=== PATIENT | female | born 1945 | race Caucasian/White ===

== ENCOUNTER → 2016-10-02 | Day surgery (SDC) | payer OTHER ==
--- NOTE | 2016-10-02 10:03 | CPEKG ---
Heart Rate: 87 RR Interval: 690 P-R Interval: 176 QRSD Interval: 74 QT Interval: 368 QTC Interval: 443 P [place]: 73 QRS [place]: -4 T Wave [place]: 57 EKG Severity - NORMAL ECG - EKG Impression: SINUS RHYTHM EKG Impression: LEFTWARD AXIS Electronically Signed By: Leonardo Chavis 03-Oct-2016 08:52:07
[2016-10-02 10:27] LABS: ANION GAP 10 mEq/L (8-16); CARBON DIOXIDE 24 mEq/l (22-31); CHLORIDE 104 mEq/L (97-110); GLOMERULAR FILTRATION RATE 54; GLUCOSE 78 mg/dL (70-100); POTASSIUM 5.5 mEq/L (3.5-5.2); SODIUM 138 mEq/L (134-144)
--- NOTE | 2016-10-02 15:07 | GPN ---
DATE OF PROCEDURE: 10/02/2016 TIME: 9:30 a.m. HISTORY OF PRESENT ILLNESS: Ms. Grant presents for possible bilateral SI joint injection. She is referred by Dr. Celio Del Real. She is not taking any blood thinners or antibiotics and denies allergies to shellfish, latex, contrast dye, and iodine. Per chart notes, she was recently admitted to the Hospital with an episode of MRSA. However, she reports that she has tested negative multiple times since then. Per Anesthesiology recommendations, a basic metabolic panel and a 12-lead EKG were obtained. ID was consulted and was not concerned about her history of MRSA or the joint injections; however, they did inform me the hospital policy is that anyone who has tested positive for MRSA within the past year should be treated with MRSA precautions which were instituted for this patient. PROCEDURE: Bilateral SI joint injections. DIAGNOSIS: Sacroiliac arthropathy low back pain. SITE: Bilateral low back. ANESTHESIA: Local with Versed 4 mg and fentanyl 50 mcg IV. COMPLICATIONS: None. ESTIMATED BLOOD LOSS: Minimal. PRE-PROCEDURE CONSENT: The preprocedure consent was obtained after the risks, benefits, and alternatives of the procedure were explained to the patient. The risks include, but are not limited to, nerve injury, spinal cord injury, joint injury paralysis brain injury or stroke, muscle injury, infection to adverse medication effects, bleeding, increased pain, and any other unforeseen consequences. The patient agreed and signed the consent for the procedure. PROCEDURE VERIFICATION AND TIMEOUT: Verbal verification of patient site and procedure was done. All present were in agreement. Please see nursing notes for time of time-out. PROCEDURE NOTE: The patient was identified and placed in a prone position on the procedure room table. Standard ASA monitors were put in place. Her low back was prepped and draped in the usual sterile fashion with ChloraPrep and a fenestrated drape. Then, a left oblique fluoroscopic view was obtained to visualize the right SI joint. The anterior and posterior aspect of the joint were aligned, and the target in the inferior 1/3 of the joint was identified. 2 mL of subcutaneous 1% lidocaine was instilled into the superficial soft tissue for local anesthesia over the target region. Under fluoroscopic guidance , a 22-gauge, 3-1/2 inch spinal needle was advanced percutaneously using AP and lateral fluoroscopic guidance via a posterior approach until the needle tip was seated in the SI joint. Biplanar fluoroscopy was used to confirm correct needle tip position. After negative aspiration, 0.5 mL of nonionic contrast agent contrast agent was injected, revealing a clear outline of the SI joint. Then, 5 mL of a solution containing 40 mg triamcinolone in 0.25% bupivacaine was injected in 1 mL increments with negative aspiration in between. There was no pain or paresthesia upon injected. The needle was restyletted and removed. The exact same procedure was then repeated on the opposite side. The patient tolerated the procedure well and was monitored for 30 more minutes with no apparent complications and was discharged home in good condition with a ride. She experienced no side effects from sedation and was instructed not to drive, operate heavy machinery or make any life altering decisions today. She was instructed to call our clinic with nonurgent concerns or 911 in an emergency. In particular she was taught that new weakness or numbness, changes in bowel or bladder control, fever and swelling or redness over the injection site are all urgent concerns that would warrant calling 911 or going to an emergency care facility. She verbalized understanding and was discharged home with postprocedure instructions and a ride. ASSESSMENT AND PLAN: Bilateral sacroiliac joint injections done today without complications. The patient will follow up with our clinic and we will consider scheduling sacroiliac joint radiofrequency ablation. /[id number]/MODL MTDD
== END | disposition home or self-care (01) ==
LOC: FSGY 08:47 → EEVIPCON 09:30
PROC: 3E0U3BZ Introduction of Anesthetic Agent into Joints, Percutaneous Approach (ICD-10-PCS; principal; 2016-10-02 09:30)
PROC: 3E0U33Z Introduction of Anti-inflammatory into Joints, Percutaneous Approach (ICD-10-PCS; principal; 2016-10-02 09:30)
DX: M54.5 Low back pain (principal); M53.3 Sacrococcygeal disorders, not elsewhere classified
CPT/HCPCS: 76001; 93005; G0260; J2250; J3010; J3301; Q9966

== ENCOUNTER 2017-03-13 20:52 | Inpatient (IN) | payer OTHER ==
[2017-03-13] MEDS ORDERED: ONDANSETRON 4 MG/2 ML VIAL IVP PRN (22:03)
[2017-03-13] MEDS: ACETAMINOPHEN 500 MG TAB PO PRN (23:40)
[2017-03-13] MEDS: NS W/ 20 KCl/L 1,000 ML IV SCH (23:40)
[2017-03-13] MEDS: DIAZEPAM 10 MG/2 ML SYR IVP PRN (23:43)
[2017-03-14 00:47] LABS: % IMMATURE GRANULYOCYTES 0.7 % (0.0-1.1); ABSOLUTE IMMATURE GRANULOCYTES 0.14 10^3/uL (0.00-0.10); ABSOLUTE NRBC COUNT 0.02 10^3/uL (0-0.01); ADD DIFF? NO; ADD MORPH? NO; ADD SCAN? NO; ATYPICAL LYMPHOCYTE FLAG 0 (0-99); FRAGMENT RBC FLAG 0 (0-99); HEMATOCRIT 31.2 % (38.0-47.0); HEMOGLOBIN 10.4 g/dL (12.6-16.3); LEFT SHIFT FLG 0 (0-99); LIPEMIA HEMOLYSIS FLAG 80 (0-99); MEAN CELL HEMOGLOBIN 34.9 pg (27.9-34.1); MEAN CELL HEMOGLOBIN CONCENTR. 33.3 g/dL (32.4-36.7); MEAN CELL VOLUME 104.7 fL (81.5-99.8); MEAN PLATELET VOLUME 9.7 fL (8.7-11.7); NRBC-AUTO% 0.1 % (0.0-0.2); PLATELET CLUMPS FLAG 10 (0-99); PLATELET COUNT 309 10^3/uL (150-400); RED BLOOD CELL COUNT 2.98 10^6/uL (4.18-5.33); RED CELL DISTRIBUTION WIDTH 12.7 % (11.5-15.2)
[2017-03-14 01:02] LABS: COLOR PALE YELLOW; LEUKOCYTE ESTERASE,URINE 2+ (NEGATIVE); NITRITE,URINE NEGATIVE (NEGATIVE)
[2017-03-14 01:04] LABS: ANION GAP 9 mEq/L (8-16); CALCIUM 8.3 mg/dL (8.5-10.4); CARBON DIOXIDE 22 mEq/l (22-31); CHLORIDE 103 mEq/L (97-110); CREATININE 0.8 mg/dL (0.6-1.0); GLOMERULAR FILTRATION RATE > 60; GLUCOSE 90 mg/dL (70-100); POTASSIUM 4.3 mEq/L (3.5-5.2); SODIUM 134 mEq/L (134-144)
[2017-03-14 01:05] LABS: MUCUS TRACE /lpf (NONE-1+); WBC,URINE 25-50 /hpf (0-3)
[2017-03-14 01:09] LABS: APTT 22.9 SEC (23.0-38.0); INR 1.07 (0.83-1.16); PROTIME(PATIENT) 13.8 SEC (12.0-15.0)
[2017-03-14 01:19] LABS: SEDIMENTATION RATE 14 MM/HR (0-30)
[2017-03-14] MEDS: diphenhydrAMINE 25 MG CAP PO PRN ×2 (01:46→19:28)
[2017-03-14] MEDS: HYDROmorphONE/DILAUDID 1 MG/ML SYR IVP PRN ×5 (01:46→13:45)
[2017-03-14] MEDS: HYDROmorphONE/DILAUDID 2 MG TAB PO PRN ×5 (01:46→20:03)
[2017-03-14] MEDS ORDERED: ceFAZolin 2 GM/DEXTROSE 100 ML IV ONE (11:00)
[2017-03-14] MEDS ORDERED: THROMBIN (BOVINE) 5,000 UNIT VIAL TP ONE (11:24)
[2017-03-14] MEDS ORDERED: BUPIVACAINE/EPI 0.25% 30 ML SDV ONE (11:24)
[2017-03-14] MEDS ORDERED: BACITRACIN 50,000 UNITS/10 ML SYR IRR ONE ×2 (11:25→11:39)
--- NOTE | 2017-03-14 11:26 | GHP ---
[f rep st] PREOP HISTORY AND PHYSICAL DATE OF ADMISSION: 03/13/2017 CHIEF COMPLAINT: Low back pain and confusion. HISTORY OF PRESENT ILLNESS: Ms. Grant is a pleasant 71-year-old female with a history of a revision L3-S1 [place] [address] Del Real. Her initial surgery was done anteriorly with Dr. Camejo and did not heal. She also has a history of a C5 through [address] Del Real in 2012 which improved her neuropathic pain significantly at that time. Recently, Ms. Grant underwent lumbar hardware removal with Dr. Del Real and was recovering at home when she developed recurrent back pain as well as confusion and was seen at [facility] and subsequently transferred to [facility] for further treatment and evaluation. She has a history of MRSA in her nares which was recently discovered. She currently has significant low back pain as well as some drainage from the inferior portion of her incision which appears purulent. She is also confused. PAST MEDICAL HISTORY: MRSA, hypertension, insomnia, hypothyroidism, GERD, cataracts and hearing loss. PAST SURGICAL HISTORY: 1. C5 through 7 anterior cervical diskectomy and fusion with Dr. Del Real in 2012. 2. L3-S1 fusion, Dr. Del Real in 2012. 3. Lumbar hardware removal on March 03, 2017, with Dr. Del Real. 4. Internal bone stimulator removal March 03, 2017, with Dr. Del Real. CURRENT MEDICATIONS: Duloxetine, gabapentin, hydrochlorothiazide, levothyroxine , lisinopril, tizanidine HCL, and zolpidem tartrate. ALLERGIES: No known drug allergies. SOCIAL HISTORY: The patient is and has 5 children. She is an ex- smoker. She drinks alcohol daily, and per previous social history notes, the patient had "issues" with narcotic medication in the past. FAMILY HISTORY: Heart disease. REVIEW OF SYSTEMS: GENERAL: Fevers. HEAD, EYES, EARS, NOSE AND THROAT: Unable to assess (due to patient confusion). CARDIAC: Unable to assess (due to patient confusion). PULMONARY: Raspy breath sounds. MUSCULOSKELETAL: No evidence of pain in the extremities. NEUROLOGIC: Confusion/disorientation. GI: Unable to assess (due to patient confusion). DATA REVIEW: White blood cell count 19.69, hemoglobin 10.4, hematocrit 31.2, platelets are 309. ESR is 14. PT 13.8, INR 1.07. Sodium is 134, potassium is 4.3, chloride 103, carbon dioxide 22, BUN 12, creatinine 0.8. Urinalysis: 2+ leukocyte esterase. Urine white blood cell 25 to 50. Chest x-ray on 03/13/2017 demonstrates possible developing lower lung zone pneumonia. PHYSICAL EXAMINATION: VITAL SIGNS: Blood pressure is 139/89, heart rate 110, respiratory rate 14, O2 saturation on room air is 95%. GENERAL: A 71-year-old female, in moderate distress secondary to low back pain. HEAD, EYES, EARS, NOSE , AND THROAT: Within normal limits. RESPIRATORY: The patient has raspy breath sounds. EXTREMITIES: Within normal limits. Her lumbar incision is healed, with the exception of a small pinpoint area of drainage at the inferior portion of the incision. The entire incision, however, is mildly erythematous and quite tender to touch. NEUROLOGIC: The patient is awake, but confused. She is unable to follow commands. Her speech is clear. She moves all extremities with what appears to be equal and symmetric strength. Her sensation is intact to light touch in all dermatomal distributions of the bilateral upper and lower extremities. 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 Del Real. She has recently developed confusion, worsening low back pain, drainage from her incision and fevers. At this time, it appears that the patient has a wound infection, but also a possible underlying pneumonia as well as urinary tract infection. Neurologically, she appears to be stable and intact, however, exam is difficult to perform secondary to the patient being very confused and unable to follow commands. PLAN: All the above issues were discussed with Dr. Del Real today. He saw and examined the patient this morning. At this time, the patient will be posted to undergo wound I and D today. We will also have Medicine see and evaluate the patient for further treatment and recommendations regarding her other medical comorbidities and issues. /[id number]/MODL and [id number]/MODL [facility]
--- NOTE | 2017-03-14 11:45 | PDANEPAE ---
ANE History of Present Illness lumbar i&D ANE Past Medical History - Cardiovascular History Hx Hypertension: Yes Hx Arrhythmias: No Hx Chest Pain: No Hx Coronary Artery / Peripheral Vascular Disease: No Hx CHF / Valvular Disease: No Hx Palpitations: No Cardiovascular History Comment: pcp monitors bp meds - Pulmonary History Hx COPD: No Hx Asthma/Reactive Airway Disease: No Hx Recent Upper Respiratory Infection: No Hx Oxygen in Use at Home: No Hx Sleep Apnea: No Sleep Apnea Screening Result - Last Documented: Negative - Neurologic History Hx Cerebrovascular Accident: No Hx Seizures: Yes Hx Dementia: No Neurologic History Comment: back surgery x4. neck surgery. metal to back. PRUSS - Endocrine History Hx Diabetes: No Endocrine History Comment: hypothyroidism - Renal History Hx Renal Disorders: Yes Renal History Comment: frequency - Liver History Hx Hepatic Disorders: No - Neurological & Psychiatric Hx Hx Neurological and Psychiatric Disorders: Yes Neurological / Psychiatric History Comment: depression r/t pain - Cancer History Hx Cancer: No - Congenital Disorder History Hx Congenital Disorders: No - GI History Hx Gastrointestinal Disorders: Yes Gastrointestinal History Comment: constipation with iron supplements - Other Health History Other Health History: hearing loss to right ear. wears hearing aide to right ear but will not be wearing dop - Chronic Pain History Chronic Pain: Yes (back, sciatica, rajat knees) - Surgical History Prior Surgeries: tonsillectomy. right shoulder repair. back surgeries x 4. neck surgery. right ear surgery ANE Review of Systems - Exercise capacity Exercise capacity: <4 METS ANE Patient History - Allergies Allergies/Adverse Reactions: No Known Allergies Allergy (Verified 09/27/16 11:51) - Home Medications Home Medications: DULoxetine [Cymbalta 60 MG (*)] 60 mg PO DAILY 09/27/16 [Last Taken 03/12/17] Gabapentin [Neurontin 100 MG (*)] 100 mg PO TID 09/27/16 [Last Taken 03/12/17] Hydrochlorothiazide [HCTZ (*)] 25 mg PO DAILY 09/27/16 [Last Taken 03/12/17] Levothyroxine [Synthroid 25 mcg (*)] 25 mcg PO DAILY06 09/27/16 [Last Taken 04/20] Lisinopril [Zestril 20 mg (*)] 20 mg PO DAILY 09/27/16 [Last Taken 03/12/17] Zolpidem Tartrate [Ambien 5MG (*)] 5 mg PO HS 09/27/16 [Last Taken 03/12/17] tiZANidine HCL [Zanaflex 2MG (*)] 2 mg PO TID PRN 09/27/16 [Last Taken 03/12/17] Acetaminophen [Tylenol 325mg (*)] 325 mg PO DAILY PRN 03/14/17 [Last Taken 03/12] Omeprazole [Prilosec 20 mg] 20 mg PO DAILY 03/14/17 [Last Taken 03/12/17] - NPO status NPO Status: no food or drink >8 hours NPO Since - Liquids (Date): 03/14/17 NPO Since - Liquids (Time): 00:00 NPO Since - Solids (Date): 03/14/17 NPO Since - Solids (Time): 00:00 - Smoking Hx Smoking Status: Former smoker - Family Anes Hx Family Hx Anesthesia Complications: none ANE Labs/Vital Signs - Labs Result Diagrams: 03/14/17 00:35 03/14/17 00:35 - Vital Signs Blood Pressure: 126/60 Heart Rate: 115 Respiratory Rate: 14 O2 Sat (%): 100 Height: 157.48 cm Weight: 58.513 kg ANE Physical Exam - Airway Mallampati Score: Class 2 Mouth exam: normal dental/mouth exam - Pulmonary Pulmonary: no respiratory distress - Cardiovascular Cardiovascular: regular rate and rhythym - ASA Status ASA Status: II
[2017-03-14] MEDS ORDERED: tiZANidine HCL 2 MG TAB PO PRN (11:46)
[2017-03-14] MEDS: DIAZEPAM 10 MG/2 ML SYR IVP PRN (11:54)
[2017-03-14] MEDS ORDERED: ROCURONIUM 50 MG/5 ML VIAL ONE (12:01)
[2017-03-14] MEDS ORDERED: CHLORHEXIDINE GLUC HIBICLENS 118 ML BTL TP ONE (12:01)
[2017-03-14] MEDS ORDERED: DEXAMETHASONE 4 MG/ML VIAL ONE (12:01)
[2017-03-14] MEDS ORDERED: fentaNYL 100 MCG/2 ML INJ ONE (12:02)
[2017-03-14] MEDS ORDERED: LIDOCAINE 2% 5 ML SDV ONE (12:02)
[2017-03-14] MEDS ORDERED: PROPOFOL 200 MG/20 ML VIAL ONE (12:02)
[2017-03-14] MEDS ORDERED: VANCOMYCIN HCL/NORMAL SALINE 250 ML IV ONE (12:14)
[2017-03-14] MEDS ORDERED: POLYETHYLENE GLYCOL 3350 17 GM PKT PO PRN (12:22)
[2017-03-14] MEDS ORDERED: MAGNESIUM HYDROXIDE 30 ML UDCUP PO PRN (12:22)
[2017-03-14] MEDS ORDERED: LACTULOSE 20 GM/30 ML UDCUP PO PRN (12:22)
[2017-03-14] MEDS ORDERED: BISACODYL 10 MG SUPP PR PRN (12:22)
[2017-03-14] MEDS ORDERED: NS 1,000 ML IV SCH (12:30)
[2017-03-14] MEDS ORDERED: POLYMYXIN B SULFATE 500,000 UNIT/10 ML SYR IRR ONE (12:42)
[2017-03-14] MEDS ORDERED: SUGAMMADEX SODIUM 200 MG/2 ML VIAL IVP ONE (12:49)
[2017-03-14] MEDS ORDERED: ONDANSETRON 4 MG/2 ML VIAL ONE (12:57)
[2017-03-14] MEDS ORDERED: METOPROLOL TARTRATE 5 MG/5 ML INJ ONE (12:58)
--- NOTE | 2017-03-14 13:37 | POSTOPPROG ---
Post Op Note Date of Operation: 03/14/17 Surgeon: Aleksandar Del Real Hopper Feeder: Kari Garrison NP Anesthesiologist: Dr Lanier Anesthesia: GET(General Endotracheal) Procedure: I&D Lumbar incisional wound Findings: cultures taken Inf/Abcess present in the surg proc area at time of surgery?: No Depth: Deep Incisional (Fascial) EBL: 50-100 Total fluids administered: see anesthesia Complications: none Drains: Oliverio Wilburn Date of Surgery: 03/14/17 Post Op Day: 0 Assessment/Plan: 71 yr old s/p I&D Lumbar incision. Patient underwent lumbar hardware removal with Dr Del Real on 03/03/17 at [facility]. Plan: -Swab and tissue cultures sent intra-op, pending results. Will follow ID recs on antibiotics -Wound did not have the appearance of infection intra-op, will wait for culture results to confirm -Patient has questionable UTI and/or PNA, we appreciate Medicine recs for this -JPx2 in place -Follow exam -Please call neurosurgery with any questions/concerns Subjective: Patient waking up from anesthesia in ICU Objective: PERRLA EOMI Patient not alert, just waking up from anesthesia 5/5 BUE, BLE Sensation intact to lt touch BLE JPx2 Dressing CDI Appropriate Neuro Check Frequency Ordered: Yes
[2017-03-14] MEDS ORDERED: fentaNYL 100 MCG/2 ML INJ IVP PRN (13:38)
[2017-03-14] MEDS ORDERED: NALOXONE HCL 0.4 MG/ML INJ IVP PRN (13:38)
--- NOTE | 2017-03-14 13:38 | POSTANESTH ---
Post Anesthetic Evaluation Cardiovascular Status: Normal, Stable Respiratory Status: Normal, Stable Level of Consciousness/Mental Status: Can Participate in Eval Pain Control: Adequate, Prn Tx Ordered Nausea/Vomiting Control: Adequate, Prn Tx Ordered Complications Possibly Related to Anesthesia: None Noted
[2017-03-14] MEDS: NS W/ 20 KCl/L 1,000 ML IV SCH (14:44)
--- NOTE | 2017-03-14 14:47 | GCON ---
[f rep st] CONSULTATION NEUROLOGY CONSULT. DATE OF CONSULTATION: 03/14/2017 REFERRING PHYSICIAN: Dr. Haley CHIEF COMPLAINT: Question seizures. HISTORY OF PRESENT ILLNESS: The patient is a very pleasant 71-year-old lady who has an interesting history of being diagnosed with posterior reversible encephalopathy syndrome (PRES) in February of this year due to a hypertensive emergency according to the family. She may have had an acute seizure at that time and since that time has had increased spells of 30 seconds of staring and unresponsiveness with automatisms in the right upper extremity. However, it is not clear whether she may have actually had similar spells for the last few months before the diagnosis of PRES. We do not have the outside records yet. In any case, she had a witnessed stereotyped event as described above with staring and right arm automatisms. It lasted around 30 seconds and she may have been slightly postictal afterwards. She has not had any convulsions. She is here in the hospital for lumbar surgery and infection. REVIEW OF SYSTEMS: A 10-point review of systems was done with the family, not with the patient as she was in post. For past medical history, social history, family history, home medications, and allergies, please see Mr. Luis A Bender's history and physical. PHYSICAL EXAMINATION: VITAL SIGNS: Blood pressure is 117/91, 36.8 temperature , saturating 100%. Patient was evaluated immediately postoperatively and was agitated, but moving all 4 extremities equally. There was no seizure activity in my presence. Higher mental function encephalopathic, postoperative from general anesthesia. CRANIAL NERVE EXAM: Symmetric face, conjugate eye movements. MOTOR EXAM: Moving all 4 extremities equally. No convulsive activity. IMPRESSION/PLAN: 1. Query seizure disorder. Overall, my impression is she certainly may have underlying focal seizure disorder based on her history of posterior reversible encephalopathy syndrome ( PRES) and recurrent spells. This may be self-limited over time. I have recommended indefinite driving restrictions and seizure precautions. In addition, she will follow up with me after she has had an outpatient MRI brain without contrast and 4-hour video EEG to characterize any epileptogenic abnormalities. We will discuss further in followup regarding a long-term plan. If she has any convulsive seizures acutely while hospitalized, we certainly can give her IV lorazepam 2 mg p.r.n. and start IV Keppra 500 mg q.12 hours. Otherwise, I would not add any medication now until she follows up with me. We will continue to follow this very nice lady as needed. Please do not hesitate to call if there are any questions or changes in neurologic status. Thank you for this consultation. fifty total minutes on the floor today reviewing records and previous medical history with the patient's extended family. It also included direct counseling with the family and coordination of care. /[id number]/MODL MTDD
--- NOTE | 2017-03-14 15:17 | GOP ---
[f rep st] OPERATIVE REPORT DATE OF OPERATION: 03/14/2017 SURGEON: Belinda Del Real MD CERTIFIED COURT INTERPRETER: Kari Garrison NP PREOPERATIVE DIAGNOSIS: Probable deep subfascial wound infection of the lumbosacral spine. POSTOPERATIVE DIAGNOSIS: Probable deep subfascial wound infection of the lumbosacral spine. PROCEDURE PERFORMED: Incision and drainage of deep subfascial wound infection. FINDINGS: ESTIMATED BLOOD LOSS: 50 cc. DESCRIPTION OF PROCEDURE: The patient was taken to the operating room, placed in supine position. General anesthesia was begun. She was flipped prone onto the Raghav frame. Care was taken to pad a ll points of contact. Her back was sterilely prepped and draped in usual fashion. The prior incisi on was inspected. There was no evidence of cellulitis. There is no erythema. It was dry. We trie d to express fluid from the incision and none could be expressed. She was sterilely prepped and eduin ped. We opened the prior incision with a scalpel blade and we cleaned up some of the old scar tissu e edges. The subcutaneous tissue did contain a subcutaneous fluid pocket that appeared to be seroma . There was no evidence of purulence whatsoever. We cultured this. We then opened our fascial sut ures, which were still intact, and in the deep subfascial area was seroma and organized blood clot, but no evidence of infection here either. Both of these were cultured. We then at that point began administering vancomycin IV. None had been given prior to this. We then used pulse lavage and use 4 L of antibiotic saline solution and irrigated out the entire incision. We placed [address] minor and then closed the incision in multiple layers using Vicryl sutures. A running nylon was plac ed in the skin itself. The patient was reversed from anesthesia, extubated, and transferred back to the ICU in stable condition. A dressing had been applied. There were no complications. COMPLICATIONS: None. INDICATIONS FOR PROCEDURE: The patient is a 71-year-old with a prior history of a very complex MRSA infection that nearly killed her. She has a prior history of multiple lumbar surgeries and an inst rumented lumbar fusion which in and of itself never got infected. She did develop a solid bony unio n and had painful hardware, and a couple weeks ago, she wanted to have the hardware removed. At the time, she had no evidence of infection, but did still have a positive nasal swab for MRSA. We disc ussed this with her, or the concept of removal of hardware, which is something that we try to avoid doing, but she really wanted to have it out. She was having a significant amount of pain associated with both the bone stimulator and (she felt) associated with the screws in her low back. The risk of fracture, as well as infection, was discussed. Hardware was all removed. She had a difficult sk in closure and the incision since the time of surgery had a tendency to weep and ooze serosanguineou s fluid, as her prior scar tissue was quite firm, much like leather, but she did relatively well, an d ultimately went home. Yesterday, she took a turn for the worse, and began developing fevers and a ltered mental status, and was taken to [facility], where she was found have a white count of 22,000. She was transferred here to [facility]. There was some possible suggestion of a pneumonia and a UTI on her laboratory values and chest x-ray. Her reported some drain age from the lumbar wound, but none could be expressed here at the bedside. MRI demonstrated a subf ascial and superficial collection of fluid, and the possibility of infection could not be ruled out. Given her prior history of MRSA, I suggested exploratory surgery to clean this area out. She unde rstood this and the family did want us to proceed. The risks were minimum and the benefits were jacky ar and substantial. /[id number]/MODL
[2017-03-14] MEDS ORDERED: PIPERACILLIN/TAZO 3.375 GM/DEX 50 ML IV SCH ×2 (15:27→18:00)
[2017-03-14] MEDS: GABAPENTIN 100 MG CAP PO SCH ×2 (15:36→20:04)
[2017-03-14] MEDS: METHOCARBAMOL 750 MG TAB PO PRN ×2 (15:36→23:34)
--- NOTE | 2017-03-14 17:32 | HOSPPROG ---
Hospitalist Progress Note Assessment/Plan: CONSULTATION NOTE CC: I AM ASKED BY DR. TONO DEL REAL SEE THIS PATIENT BECAUSE OF FEVERS AND CONCERN FOR SPINAL INFECTION HISTORY: This patient has had multiple spine surgeries and most recently had removal of lumbar hardware and stimulator on March 03 at [address] hospital by Dr. Tono Del Real. The patient has developed fevers and presented to another ER. Dr. Del Real was contacted and the patient has now been transferred to this hospital for further evaluation and treatment of her fever illness. Dr. Del Real comments to me that the patient did have some fluid drainage and some blood from her wound after the surgery and he is concerned that she may have potentially a lumbar infection or abscesses. There was notation of some fluid collections on imaging studies at the other ER today. The patient per Dr. Del Real's description to me has had enough surgeries in this area that her skin is somewhat leathery and he thinks this is potentially a reason for her not healing the wound as well. Dr. Del Real does plan on exploratory surgery of her back today to rule out infection and clean out any infected material this area present. Patient is now in the intensive care unit as she has some fever and tachycardia. I am visiting her there. She has pain in her back and is symptoms suggestive of fever but there are no other specific symptoms that she tells me about at this time. Specifically there are no radicular or other neurologic symptoms. She has no chest pain shortness of breath. There is still some fluid coming from the wound or back but she does not think it is bloody at this point. She is not bleeding anywhere else. In terms of preoperative risk assessment the patient has never had any anesthetic complications. She has no history of heart, lung, renal, endocrine, liver, thromboembolic, or bleeding disorders or symptoms other than chronic hypothyroidism on replacement. She has no medication allergies. When her back per minute she has no problem doing physical activities but lately has had significant back issues presenting that. During my interview with the patient and her family at bedside today the patient had what looked to me like a brief partial seizure lasting about 30 seconds. In talking with the patient and her family it sounds like she has been having these daily at home ever since she had presented with an encephalopathy to another hospital in [place] at the beginning of the summer. 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 She is not on anti seizure medication. She has visited a neurologist. See my description in physical examination below ROS: A comprehensive 10 system review revealed no other significant findings PAST MEDICAL HISTORY: Multiple spine surgeries Posterior reversible encephalopathy was noted after she presented to another hospital with neurologic symptoms and severe hypertension earlier this summer Question of possible seizure disorder with observed spell at the time of her encephalopathy presentation, and continued spells at home. She is not on medication for this. Cardiac arrest with successful resuscitation in the postoperative setting, it is unclear to me what the mechanism of this is a do not currently have records Hypothyroidism on replacement Hypertension on treatment Chronic pain syndrome due to her back issues FAMILY MEDICAL HISTORY: No seizure disorders, heart disease or other related illnesses SOCIAL HISTORY: lives with her No tobacco since she was in her 20s No significant alcohol MEDICATIONS: The patients list has been reconciled by our clinical pharmacist in the EMR. I have reviewed the list and ordered appropriate medicines. PHYSICAL EXAMINATION: Vital Signs: Height is temperature so far 38.3, initial pulse was at 122 but significantly better after some hydration, blood pressure is good and respirations are very relaxed and not rapid Converter Operator: Sinus rhythm with mild tachycardia at this time Examination: During my visit with the patient she did experience a brief spell that consisted of marker and inattention, repetitive lip smacking and tongue movements, with some repetitive motion in her right hand and wrist. There were no other tonic or repetitive motions. This lasted approximately 30 seconds following which she was awake and conversant with me but somewhat confused and unable to converse quite normally. Within 2-3 minutes she was back to normal mentation. This did not occur during the rest of my visit with her. My impression of this spell was it was a focal seizure. The patient and her family described that she has been having these repeatedly often on a daily basis at home Otherwise - General: alert, oriented, good mentation, relaxed Skin: warm, dry, good color, no rash HEENT: normal Neck: no mass or jvd Resps: relaxed Lungs: clear breath sounds Heart: regular, no murmur Abdomen: soft, nondistended, nontender, +BS, no mass Upper Extremities: normal Lower Extremities: no edema, warm No Bleeding or bruising Neurologic: normal speech/language, normal barrel charrer helper, no focal weakness IV site: looks normal [place]ORATORY [place]: [place] [address] Chemistries unremarkable Urinalysis with 15-25 white blood cells and positive leukocyte esterase RADIOLOGY STUDIES: I do not have her outside imaging studies here at this time Chest x-ray here today, my interpretation of the images: I do not see any definitive evidence of infiltrate there. The patient has now been to the operating room where Dr. Del Real did exploration of her back and did not find evidence of infection there but did find some fluid which is evacuated. ASSESSMENT: -acute sepsis, mild without organ failure -I suspect urinary tract infection which would be a hospital-acquired urinary tract infection acquired at the previous hospital is likely source. -will wait for cultures from her back but at least clinically at the time of surgery there is not evidence of infection in her around the spine -I do not have suspicion for pneumonia at this time -partial seizure today with history of recurrent partial seizures since having an episode of PRES 2 months ago -recent spine surgery with removal of hardware and stimulator; some difficulty with wound healing after that I have discussed this case in detail with doctors Tono Del Real and Kingsley Cantu. In terms of infection I believe most likely this is urinary source but respiratory or other sources are possible. As this would have been a hospital- acquired infection from her previous hospital stay where she had had Hill catheter, I have ordered treatment with Zosyn and have also ordered vancomycin just on the off chance that there actually is some wound infection. She did show up here with some mild sepsis but is responding nicely to antibiotic and fluid resuscitation and I think she will do well with the sepsis piece of it. There is no evidence of organ failure complications from this. There is an infectious disease consultation requested and I will discuss with them as well. In terms of the seizure that I saw I went through this in detail with Dr. Chaves and at this point we agree that we do not necessarily need to treated for this syndrome unless she has generalized tonic-clonic seizures or significant difficulty with large number of episodes. In terms of further evaluation it would be good to consider repeating MRI scan and EEG but it would be ideal to do this in the outpatient setting when she is not in the midst of surgery, anesthesia, acute infection with sepsis, etc. If she however has progression to a more significant seizure syndrome here we can always proceed with inpatient evaluation. Objective: Vital Signs Temp Pulse Resp BP Pulse Ox 37 C 100 14 110/50 L 100 03/14/17 16:00 03/14/17 16:00 03/14/17 16:00 03/14/17 16:00 03/14/17 16:00 Microbiology 03/14/17 12:40 Gram Stain - Final Back - Eswab 03/14/17 12:40 Gram Stain - Final Back - Tissue 03/14/17 12:40 Gram Stain - Final Back - Eswab 03/14/17 12:40 Mycobacterial Smear (LA) - Final Back - Eswab Mycobacterial Culture - Final 03/14/17 12:40 Mycobacterial Smear (LA) - Final Back - Eswab Mycobacterial Culture - Final Laboratory Results 03/14/17 00:35 03/14/17 00:35 03/13/17 03/14/17 03/15/17 06:59 06:59 06:59 Intake Total 800 1995 Output Total 100 1065 Balance 700 930 PT 13.8 SEC (12.0-15.0) 03/14/17 00:35 INR 1.07 (0.83-1.16) 03/14/17 00:35 ICD10 Worksheet Patient Problems: Problems Problem Status Onset Sepsis Acute - ICD10 Problem Qualifiers (1) Sepsis Qualifiers: Sepsis type: S
[2017-03-14] MEDS: cefTRIAXone 2 GM in D5W 50 ML IV SCH (19:18)
--- NOTE | 2017-03-14 19:22 | GCON ---
[f rep st] CONSULTATION INFECTIOUS DISEASE CONSULTATION. 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 HPI: This is a 71-year-old woman with a past medical history of MRSA bacteremia with associated deep pelvic abscess in summer of 2015, who recently underwent lumbar hardware removal 03/03/2017, who subsequently developed increasing pain in her back on March 13, 2017, increased drainage and a fever to 101.2. Patient presented to outside emergency room where which she was found to have a marked leukocytosis of 21,000 and an MRI with contrast demonstrating a 5.7 x 6.9 x 2.8 cm fluid collection in the laminectomy bed with noticeable lack of hardware, a 4.8 x 4.8 x 1.4 cm subcutaneous fluid collection L5-S1 with the suggestion that these 2 areas were connected. Patient was transferred to [facility] as this is where her neurosurgeon, Dr. Del Real, resides. Patient went to the operating room today and underwent and I and D of the lumbar incisional wound down to the dura. No obvious purulence was noted but intraoperative cultures were taken and Gram stains are negative for organisms. Postoperatively, patient reports that her back pain is significantly improved. REVIEW OF SYSTEMS: A complete 10-point review of systems was performed and is negative. Only complaint is related to back pain. Patient denies respiratory symptoms and urinary symptoms. ALLERGIES: NKDA. MEDICATIONS: Vancomycin 1 g IV q.12 hours, Zosyn 3.375 IV q.6, tizanidine 2 mg 3 times daily p.r.n., Ambien 5 mg p.o. at bedtime p.r.n., morphine as needed, Robaxin 750 p.o. four times daily as needed, lisinopril 20 mg daily. Levothyroxine 25 mg daily. Lactulose as needed. Hydrochlorothiazide 25 mg daily. Gabapentin 100 mg 3 times daily, Lovenox 40 subcu daily, Cymbalta 60 mg daily, diazepam as needed, Dulcolax as needed and Tylenol as needed. PAST MEDICAL HISTORY: Osteoarthritis, hypertension, chronic back pain, anxiety , postsurgical history, prior laminectomy with hardware removal recently as per HPI. Tracheostomy, tonsillectomy, neck surgery, hysterectomy, history of shoulder surgery, G-tube. SOCIAL HISTORY: Remote history of alcohol abuse, former smoker. She is . Lives in [place]. Has 5 adult children and over 30 grandchildren. VACCINATION HISTORY: Pneumonia vaccination 2009, tetanus vaccination 2008. FAMILY HISTORY: Reviewed and noncontributory. PHYSICAL EXAMINATION: VITAL SIGNS: Blood pressure 112/69, heart rate 100-117, respiratory rate 15, saturation 96% on room air. Temperature 97. GENERAL: This is a pleasant woman lying in bed in no distress. HEENT: Pale conjunctivae. Pupils are reactive. Oropharynx: Moist mucous membranes. No oral lesions. NECK: Supple. CARDIOVASCULAR: Tachycardic, regular rate. CHEST: Clear to auscultation bilaterally. ABDOMEN: Distended but soft. Bowel sounds are present. EXTREMITIES: No clubbing, cyanosis, or edema. She had 2 peripheral IVs in her right arm without surrounding redness. NEUROLOGIC: She is moving all 4 extremities equally and was cooperative. Back: 2 MYNOR drains with serosanguineous fluid LABORATORY: White count 19.6, hematocrit 31, platelets of 309, 87% neutrophils. Creatinine 0.8. CRP 85. Blood cultures from March 14 are pending and cultures from the OR are also pending. Urinalysis 2+ LE, 25-50 WBC. ASSESSMENT AND PLAN: 71-year-old woman who underwent hardware removal from the lumbar spine 2016, who developed sudden onset of back pain and a worsening drainage with a fever yesterday and was found to have an elevated white count and a fluid collection in the laminectomy bed all suggestive of early infection. No obvious purulence in the OR but may reflect rapid management of this infection. Suspect source infection related to back as no other localizing symptoms. Suspect primary organisms of concern include Streptococcus, Staphylococcus. Gram-negative rods are less common etiology of surgical site infection associated with spinal surgery. Recommendations: 1. Agree with vancomycin with history of MRSA. 2. Contact isolation with history of MRSA. 3. Would discontinue Zosyn as no specific concern for anaerobes or Pseudomonas in this surgical site infection. Nonetheless, worthwhile to cover gram negatives until better understand this process. Would recommend ceftriaxone 2 g IV daily as there is no clear epidural process warranting HEADER SET UP OPERATOR dosing. Thank you for this consultation. We will continue to follow on a daily basis. /[id number]/MODL MTDD
[2017-03-14] MEDS: SENNOSIDES/DOCUSATE SODIUM TAB PO SCH (20:03)
[2017-03-14] MEDS: ZOLPIDEM TARTRATE 5 MG TAB PO SCH (20:04)
[2017-03-14] MEDS: ACETAMINOPHEN 500 MG TAB PO PRN (23:33)
[2017-03-15] MEDS: ACETAMINOPHEN 500 MG TAB PO PRN ×2 (05:12→20:16)
[2017-03-15] MEDS: LEVOTHYROXINE 25 MCG TAB PO SCH (05:12)
[2017-03-15] MEDS: diphenhydrAMINE 25 MG CAP PO PRN ×2 (05:12→19:38)
[2017-03-15 05:18] LABS: % IMMATURE GRANULYOCYTES 0.8 % (0.0-1.1); ABSOLUTE IMMATURE GRANULOCYTES 0.16 10^3/uL (0.00-0.10); ADD DIFF? NO; ADD MORPH? NO; ADD SCAN? NO; ATYPICAL LYMPHOCYTE FLAG 0 (0-99); FRAGMENT RBC FLAG 0 (0-99); HEMATOCRIT 24.7 % (38.0-47.0); HEMOGLOBIN 8.2 g/dL (12.6-16.3); LEFT SHIFT FLG 0 (0-99); LIPEMIA HEMOLYSIS FLAG 80 (0-99); MEAN CELL HEMOGLOBIN CONCENTR. 33.2 g/dL (32.4-36.7); MEAN CELL VOLUME 105.6 fL (81.5-99.8); MEAN PLATELET VOLUME 9.8 fL (8.7-11.7); PLATELET CLUMPS FLAG 10 (0-99); PLATELET COUNT 284 10^3/uL (150-400); RED BLOOD CELL COUNT 2.34 10^6/uL (4.18-5.33); RED CELL DISTRIBUTION WIDTH 12.8 % (11.5-15.2)
[2017-03-15 05:28] LABS: ANION GAP 5 mEq/L (8-16); CALCIUM 8.4 mg/dL (8.5-10.4); CARBON DIOXIDE 24 mEq/l (22-31); CHLORIDE 105 mEq/L (97-110); CREATININE 0.7 mg/dL (0.6-1.0); GLOMERULAR FILTRATION RATE > 60; GLUCOSE 110 mg/dL (70-100); POTASSIUM 4.3 mEq/L (3.5-5.2); SODIUM 134 mEq/L (134-144)
--- NOTE | 2017-03-15 06:40 | NEUSURGPN ---
Date of Surgery: 03/14/17 Post Op Day: 1 Assessment/Plan: Assessment: 71 yr old s/p I&D lumbar incision POD #1. Pt with reported UTI/ pneumonia Plan: -Pt has a hx of lumbar hardware removal with Dr Del Real on 03/03/17 at [facility] -PT/OT -defer to ID/IM regarding UTI/wound/pneumonia abx choice -incision CDI -continue to follow cultures -swab and tissue cultures sent intra-op, pending results -wound did not have the appearance of infection intra-op, will wait for culture results to confirm -patient has questionable UTI and/or PNA, we appreciate IM/ID recs for this -JPx2 in place-continue -follow exam -please call neurosurgery with any questions/concerns Subjective: Awake and alert to person, place, month and president. No new complaints or concerns. No f/c/n/v/d. No bledsoe/neck/chest/abd complaints. Objective: PERRLA/EOMI Patient more alert and awake to person, month, president. Pt was able to recall my name and our interactions from our office visits together 12/06 BUE, BLE Sensation intact to lt touch BLE JPx2 Dressing CDI Neuro Check Frequency: per routine Urinary Catheter in Place: No - Physician Discussed Patient with Dr.: Gt Neurosurgery Physical Exam - Vitals, I&O, Labs I and O 03/14/17 03/15/17 03/16/17 05:59 05:59 05:59 Intake Total 300 4175 Output Total 100 1685 Balance 200 2490 Weight 58.513 kg 58.513 kg Intake: Oral (ml) 300 1600 IV Intake (ml) 1000 IV Infused (ml) 1575 NS W/ 20 KCl/L 1,000 ml @ 1575 75 mls/hr IV CONT OLI Rx #:[id number] Output: Urine (ml) 100 1590 Bedside Commode 100 1590 MYNOR Drain Output (ml) 95 Left Back 10 Right Back 85 Other: Intake Quantity Yes Sufficient Output Comment Bedside Commode 5 times in last 3 hrs with 50 to 100 ml out at a time Number of Voids Bedside Commode 5 1 Number of Stools Bedside Commode 0 Microbiology 03/14/17 12:40 Gram Stain - Final Back - Eswab 03/14/17 12:40 Gram Stain - Final Back - Tissue 03/14/17 12:40 Gram Stain - Final Back - Eswab 03/14/17 12:40 Mycobacterial Smear (LA) - Final Back - Eswab Mycobacterial Culture - Final 03/14/17 12:40 Mycobacterial Smear (LA) - Final Back - Eswab Mycobacterial Culture - Final Vital Signs Temp Pulse Resp BP Pulse Ox 36.7 C 94 13 83/42 L 100 03/15/17 05:00 03/15/17 06:00 03/15/17 06:00 03/15/17 06:00 03/15/17 06:00 Laboratory Results 03/15/17 05:00 03/15/17 05:00 ICD10 Worksheet Patient Problems: Problems Problem Status Onset Sepsis Acute
[2017-03-15] MEDS ORDERED: NON-FORMULARY NEW DRUG (Omeprazole [Prilosec 20 Mg] 20 MG) PO SCH (09:00)
--- NOTE | 2017-03-15 09:18 | PCMIDPN ---
Assessment/Plan: # Possible post op infection follow lumbar spine HWR removal s/p debridement yesterday. No purulence in OR. Did not penetrate epidural space and imaging showed no epidural abscess. Suspect staph or strep. 03/14 blood cx and OR cultures NGTD --continue vancomycin 1gm IV daily, CrCl in 40s and 58kg; Cr 0.7 --continue ceftriaxone for GNR coverage, although less likely etiology of post op infection, for 48-72 hours. Standard dosing, do not need ELECTRO MECHANICAL ASSEMBLER penetration dosing. --overall duration of therapy to be determined # Delirium, mild - still oriented by some confusion about what happened yesterday - thinks she went dancing yesterday. Suspect related to anaesthesia, infection # Leukocytosis: no hypoxia, no cough, minimal CXR findings, no urinary sx. Denies diarrhea, suspect related to surgery and lumbar surgical bed infection meds vancomycin 1gm IV daily Ceftriaxone 2gm IV daily Subjective: very cheerful, able to rise from bed to bedside commode easily no diarrhea Objective: Vital Signs Temp Pulse Resp BP Pulse Ox 36.7 C 94 13 83/42 L 100 03/15/17 05:00 03/15/17 06:00 03/15/17 06:00 03/15/17 06:00 03/15/17 06:00 Microbiology 03/14/17 12:40 Gram Stain - Final Back - Eswab 03/14/17 12:40 Gram Stain - Final Back - Tissue 03/14/17 12:40 Gram Stain - Final Back - Eswab 03/14/17 12:40 Mycobacterial Smear (LA) - Final Back - Eswab Mycobacterial Culture - Final 03/14/17 12:40 Mycobacterial Smear (LA) - Final Back - Eswab Mycobacterial Culture - Final Laboratory Results 03/15/17 05:00 03/15/17 05:00 03/14/17 03/15/17 03/16/17 05:59 05:59 05:59 Intake Total 300 4175 Output Total 100 1685 Balance 200 2490 ESR 14 MM/HR (0-30) 03/14/17 00:35 C-Reactive Protein 85.0 mg/L (<10.0) H 03/14/17 00:35 - Physical Exam General Appearance: alert, no apparent distress EENT: No scleral icterus Respiratory: lungs clear, No accessory muscle use Neck: supple Cardiac/Chest: regular rate, rhythm Abdomen: non-tender, soft Pelvic Exam: No cheek Skin: No rash Neuro/Psych: alert, normal mood/affect, oriented x 3 ICD10 Worksheet Patient Problems: Problems Problem Status Onset Sepsis Acute
[2017-03-15] MEDS: cefTRIAXone 2 GM in D5W 50 ML IV SCH (09:53)
[2017-03-15] MEDS: DULoxetine 60 MG CAP PO SCH (09:53)
[2017-03-15] MEDS: LISINOPRIL 20 MG TAB PO SCH (09:53)
[2017-03-15] MEDS: ENOXAPARIN 40 MG/0.4 ML SYR SC SCH (09:53)
[2017-03-15] MEDS: GABAPENTIN 100 MG CAP PO SCH ×3 (09:54→20:17)
[2017-03-15] MEDS: PANTOPRAZOLE SODIUM 40 MG TAB PO SCH (09:54)
[2017-03-15] MEDS: HYDROCHLOROTHIAZIDE 25 MG TAB PO SCH (09:54)
[2017-03-15] MEDS: SENNOSIDES/DOCUSATE SODIUM TAB PO SCH ×2 (09:55→20:17)
[2017-03-15] MEDS: PHENAZOPYRIDINE HCL 200 MG TAB PO SCH ×3 (10:46→17:42)
[2017-03-15] MEDS: VANCOMYCIN HCL/NORMAL SALINE 250 ML IV SCH (12:24)
--- NOTE | 2017-03-15 12:43 | PDINTPN ---
Candy Cooker Helper Progress Note Assessment/Plan: Assessment: Probable infection: WBC remains elevated. Afebrile x24 hours. Most likely source is wound. Lung and urine less likely, no symptoms. S/Aureus from wound culture. On Zosyn/Vanco. Delerium: Mild. Likely related to infection, hospitalization, and anesthesia. Plan: Continue empiric antibiotics. Diet and activity as tolerated. Follow WBC. OK to transfer to floor. 03/15/17 12:39 03/15/17 12:39 Subjective: Back pain is improved, as is lower extremity strength. Objective: Vital Signs Temp Pulse Resp BP Pulse Ox 36.7 C 82 19 105/65 93 03/15/17 05:00 03/15/17 10:00 03/15/17 10:00 03/15/17 10:00 03/15/17 10:00 Microbiology 03/14/17 12:40 Gram Stain - Final Back - Tissue 03/14/17 12:40 Gram Stain - Final Back - Eswab 03/14/17 12:40 Gram Stain - Final Back - Eswab 03/14/17 12:40 Mycobacterial Smear (LA) - Final Back - Eswab Mycobacterial Culture - Final 03/14/17 12:40 Mycobacterial Smear (LA) - Final Back - Eswab Mycobacterial Culture - Final Laboratory Results 03/15/17 05:00 03/15/17 05:00 03/14/17 03/15/17 03/16/17 05:59 05:59 05:59 Intake Total 300 4175 Output Total 100 1685 Balance 200 2490 PT 13.8 SEC (12.0-15.0) 03/14/17 00:35 INR 1.07 (0.83-1.16) 03/14/17 00:35 Wound culture: (+) S. Aureus Physical Exam - Physical Exam General Appearance: alert, no apparent distress EENT: normal ENT inspection Neck: normal inspection Respiratory: chest non-tender, lungs clear Cardiac/Chest: regular rate, rhythm, edema Abdomen: normal bowel sounds, non-tender Back: Other (bound intact and dry.) Skin: normal color, warm/dry Extremities: normal inspection Neuro/Psych: alert, normal mood/affect, oriented x 3 ICD10 Worksheet Patient Problems: Problems Problem Status Onset Sepsis Acute
[2017-03-15] MEDS: HYDROmorphONE/DILAUDID 2 MG TAB PO PRN ×3 (12:55→22:34)
--- NOTE | 2017-03-15 12:59 | GCON ---
[f rep st] CONSULTATION PULMONARY/CRITICAL CARE CONSULTATION DATE OF CONSULTATION: 03/14/2017 Referring provider is Belinda Del Real MD. REASON FOR REFERRAL: Evaluation and management of confusion and tachycardia. HISTORY: The patient is a 71-year-old woman with a history of MRSA bacteremia in 2016 related to a deep pelvic abscess. She recently underwent removal of lumbar hardware 10 days ago. Yesterday, she developed increased pain in her back, as well as a fever to 101.2. [facility] she was found to have a white blood count of 21,000, as well as tachycardia. She also had a fluid collection around the laminectomy bed. She was transferred to [facility]. She was taken to the operating room by Dr. Del Real, who drained the fluid collection w ithout any signs of purulence. The patient reports that her back pain is improved. PAST MEDICAL HISTORY: 1. Osteoarthritis. 2. Hypertension. 3. Chronic back pain. 4. Anxiety. 5. History of tonsillectomy. MEDICATIONS: Include Ambien, Zanaflex, Zestril, Synthroid, hydrochlorothiazide, Neurontin, Cymbalta , Prilosec, and Tylenol as an outpatient. Here in the hospital, she has been started on vancomycin and Zosyn. ALLERGIES: None. SOCIAL HISTORY: The patient has a remote history of alcohol abuse and is a former smoker. She is m arried and lives in [place]. FAMILY HISTORY: Unremarkable. REVIEW OF SYSTEMS: A 10-point review of systems adds nothing to the history of present illness. PHYSICAL EXAMINATION: GENERAL: The patient is awake and alert. She is a little bit confused. Her blood pressure is 110/50, with a heart rate of 100. She is afebrile, although her temperature was 38.3 preoperatively. Her oxygen saturations are 100% on 2 L. HEENT: Normocephalic and atraumatic. No icterus. NECK: No JVD. Trachea is midline. CHEST: Clear to auscultation. CARDIAC: Regula r rate and rhythm, without murmur. ABDOMEN: Soft and nontender. Bowel sounds are present. EXTREM ITIES: No clubbing, cyanosis, or edema. NEURO: The patient is awake, alert, and has no cranial ne rve deficits. She has no sensory or motor weakness. She has just some mild confusion. LABORATORY: White blood count is 19.7, with a hemoglobin of 10.4. Her chemistry group is unremarka ble. C-reactive protein is 85.0. Urinalysis shows 25-50 white blood cells, with 1-3 red blood cell s. Chest x-ray shows some possible patchy infiltrates in the left base. Images reviewed. ASSESSMENT: 1. Fever and elevated white blood count. There is a concern for infection. The most obvious sourc e would be her back, but the intraoperative findings were unremarkable. Nonetheless, she could have an infection without significant pyogenic response. She has been started on empiric broad-spectrum antibiotics. 2. Delirium. This is mild and likely due to a possible infection, as well as her hospitalization a nd transfer. She is currently postoperative, and her anesthesia could contribute as well. 3. Tachycardic. This is sinus tachycardia and likely a response to systemic inflammation from infe ction. RECOMMENDATIONS: 1. Continue empiric antibiotics. ID has been consulted and will make further recommendations. 2. Continue monitoring in the ICU, although she is not developing any signs of ongoing sepsis steve weston with the exception of her tachycardia, which will be monitored. /[id number]/MODL
--- NOTE | 2017-03-15 16:09 | HOSPPROG ---
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 Nilesh Metcalf and also saw the patient on multidisciplinary rounds She is improved in terms of her sepsis today. At this point with Staph growing in her wound cultures I think that is probably the primary source of infection but will follow urine cultures closely as well and look for any other source. Delirium is improved also but still remains a bit of an issue that may slow down her progress. In terms of the seizure that I saw I went through this in detail with Dr. Chaves and at this point we agree that we do not necessarily need to treated for this syndrome unless she has generalized tonic-clonic seizures or significant difficulty with large number of episodes. In terms of further evaluation it would be good to consider repeating MRI scan and EEG but it would be ideal to do this in the outpatient setting when she is not in the midst of surgery, anesthesia, acute infection with sepsis, etc. If she however has progression to a more significant seizure syndrome here we can always proceed with inpatient evaluation. PLANS: -Continue current antibiotics -Continue wound care for her back -Physical occupational therapies -DVT prophylaxis -follow neurologic status closely but plan at this time is for outpatient evaluation for her seizure disorder which consist of frequent focal seizures or similar spells SUBJECTIVE: notably less pain today, some incisional pain No fever symptoms No respiratory symptoms Eating Vitals reviewed: stable without fever Zanjero, my review: sinus rhythm Exam: alert remains mildly disoriented but better than yesterday, talkative and mostly cheerful skin warm dry color ok resps not labored lungs clear BSs heart regular abd soft nondistended nontender, bowel sounds present limbs warm, no edema iv site ok microbiology: Wound culture from back with gram-positive cocci presumably staff Urine cultures and blood cultures so far negative Objective: Vital Signs Temp Pulse Resp BP Pulse Ox 36.7 C 82 19 105/65 93 03/15/17 05:00 03/15/17 10:00 03/15/17 10:00 03/15/17 10:00 03/15/17 10:00 Microbiology 03/14/17 12:40 Gram Stain - Final Back - Tissue 03/14/17 12:40 Gram Stain - Final Back - Eswab 03/14/17 12:40 Gram Stain - Final Back - Eswab 03/14/17 12:40 Mycobacterial Smear (LA) - Final Back - Eswab Mycobacterial Culture - Final 03/14/17 12:40 Mycobacterial Smear (AL) - Final Back - Eswab Mycobacterial Culture - Final Laboratory Results 03/15/17 05:00 03/15/17 05:00 03/14/17 03/15/17 03/16/17 06:59 06:59 06:59 Intake Total 800 3675 Output Total 100 1685 325 Balance 700 1990 -325 PT 13.8 SEC (12.0-15.0) 03/14/17 00:35 INR 1.07 (0.83-1.16) 03/14/17 00:35 ICD10 Worksheet Patient Problems: Problems Problem Status Onset Sepsis Acute - ICD10 Problem Qualifiers (1) Sepsis Qualifiers: Sepsis type: S
[2017-03-15] MEDS: METHOCARBAMOL 750 MG TAB PO PRN (16:17)
[2017-03-15] MEDS: ZOLPIDEM TARTRATE 5 MG TAB PO SCH (20:17)
[2017-03-16] MEDS: diphenhydrAMINE 25 MG CAP PO PRN (01:52)
[2017-03-16] MEDS: HYDROmorphONE/DILAUDID 2 MG TAB PO PRN ×6 (01:53→23:05)
[2017-03-16] MEDS: METHOCARBAMOL 750 MG TAB PO PRN ×3 (08:36→21:31)
[2017-03-16] MEDS: SENNOSIDES/DOCUSATE SODIUM TAB PO SCH ×2 (08:36→20:40)
[2017-03-16] MEDS: cefTRIAXone 2 GM in D5W 50 ML IV SCH (08:36)
[2017-03-16] MEDS: GABAPENTIN 100 MG CAP PO SCH ×3 (08:36→20:40)
[2017-03-16] MEDS: ENOXAPARIN 40 MG/0.4 ML SYR SC SCH (08:36)
[2017-03-16] MEDS: LISINOPRIL 20 MG TAB PO SCH (08:37)
[2017-03-16] MEDS: DULoxetine 60 MG CAP PO SCH (08:37)
[2017-03-16] MEDS: HYDROCHLOROTHIAZIDE 25 MG TAB PO SCH (08:37)
[2017-03-16] MEDS: ACETAMINOPHEN 500 MG TAB PO PRN ×3 (08:38→20:41)
[2017-03-16] MEDS: PANTOPRAZOLE SODIUM 40 MG TAB PO SCH (08:38)
[2017-03-16] MEDS ORDERED: ALTEPLASE 2 MG VIAL IVP PRN (08:51)
--- NOTE | 2017-03-16 08:51 | PCMIDPN ---
Assessment/Plan: # MRSA postop op infection following HWR removal s/p debridement down to dura, but not in epidural space. Multiple OR cx from 03/14 growing MRSA --dc ceftriaxone --continue vancomycin, check trough ; creatinine is normal today --will need 2-4 weeks IV antibiotics, will place PICC, blood cx 03/14 --ordered PICC for today or tomorrow. --continue contact isolating # Delirium, mild - mostly resolved this AM # Leukocytosis - precipitous drop in WBC today unclear if this is a true finding. Nonetheless clinically patient is improving. meds vancomycin 1gm IV daily, #3 Ceftriaxone 2gm IV daily Subjective: some intermittent back pain no BM, no diarrhea no rash, itching Objective: Vital Signs Temp Pulse Resp BP Pulse Ox 36.8 C 105 H 22 H 136/76 H 98 03/15/17 19:00 03/15/17 19:00 03/15/17 19:00 03/16/17 08:37 03/15/17 19:00 Microbiology 03/14/17 12:40 Mycobacterial Smear (LA) - Final Back - Tissue 03/14/17 12:40 Gram Stain - Final Back - Tissue 03/14/17 12:40 Gram Stain - Final Back - Eswab 03/14/17 12:40 Gram Stain - Final Back - Eswab Laboratory Results 03/15/17 05:00 03/15/17 05:00 03/15/17 03/16/17 03/17/17 05:59 05:59 05:59 Intake Total 4175 600 Output Total 1685 1275 Balance 2490 -675 ESR 14 MM/HR (0-30) 03/14/17 00:35 C-Reactive Protein 85.0 mg/L (<10.0) H 03/14/17 00:35 Laboratory Tests 03/15/17 03/16/17 03/16/17 05:00 09:25 09:25 WBC 20.06 H 7.89 D Hct 24.8 L Plt Count 316 Creatinine 0.8 - Physical Exam General Appearance: alert, no apparent distress EENT: No thrush Respiratory: lungs clear, No accessory muscle use Neck: supple Cardiac/Chest: tachycardia Extremities: No swelling Abdomen: non-tender, soft, distended (mild) Skin: pallor, No diaphoresis, No jaundice, No rash Neuro/Psych: alert, normal mood/affect - Time Spent With Patient Time Spent with Patient: greater than 25 minutes Time Spent with Patient: Greater than 25 minutes spent on this patients care, greater than 50% of time spent counseling, educating, and coordinating care regarding the above mentioned plan. ICD10 Worksheet Patient Problems: Problems Problem Status Onset Sepsis Acute
[2017-03-16 09:38] LABS: % IMMATURE GRANULYOCYTES 0.5 % (0.0-1.1); ABSOLUTE IMMATURE GRANULOCYTES 0.04 10^3/uL (0.00-0.10); ADD DIFF? NO; ADD MORPH? NO; ADD SCAN? NO; ATYPICAL LYMPHOCYTE FLAG 0 (0-99); FRAGMENT RBC FLAG 0 (0-99); HEMATOCRIT 24.8 % (38.0-47.0); HEMOGLOBIN 8.3 g/dL (12.6-16.3); LEFT SHIFT FLG 0 (0-99); LIPEMIA HEMOLYSIS FLAG 80 (0-99); MEAN CELL HEMOGLOBIN 35.3 pg (27.9-34.1); MEAN CELL HEMOGLOBIN CONCENTR. 33.5 g/dL (32.4-36.7); MEAN CELL VOLUME 105.5 fL (81.5-99.8); MEAN PLATELET VOLUME 9.5 fL (8.7-11.7); PLATELET CLUMPS FLAG 10 (0-99); PLATELET COUNT 316 10^3/uL (150-400); RED BLOOD CELL COUNT 2.35 10^6/uL (4.18-5.33)
[2017-03-16 09:57] LABS: ALANINE AMINOTRANSFERASE 27 IU/L (9-52); ALBUMIN 2.8 g/dL (3.5-5.0); ALKALINE PHOSPHATASE 58 IU/L (38-126); ANION GAP 6 mEq/L (8-16); ASPARTATE AMINOTRANSFERASE 18 IU/L (14-46); BILIRUBIN,TOTAL 0.4 mg/dL (0.1-1.4); CALCIUM 8.9 mg/dL (8.5-10.4); CARBON DIOXIDE 25 mEq/l (22-31); CHLORIDE 103 mEq/L (97-110); CREATININE 0.8 mg/dL (0.6-1.0); GLOMERULAR FILTRATION RATE > 60; GLUCOSE 82 mg/dL (70-100); POTASSIUM 4.5 mEq/L (3.5-5.2); SODIUM 134 mEq/L (134-144); TOTAL PROTEIN 5.1 g/dL (6.3-8.2)
--- NOTE | 2017-03-16 10:39 | NEUSURGPN ---
Date of Surgery: 03/14/17 Post Op Day: 2 Assessment/Plan: Assessment: 71 yr old s/p I&D lumbar incision POD #2. Pt with reported UTI/ pneumonia Plan: -Pt has a hx of lumbar hardware removal with Dr Del Real on 03/03/17 at [facility] -PT/OT -ok to transfer to med surg -defer to ID/IM regarding UTI/wound/pneumonia abx choice -incision CDI -continue to follow cultures -swab and tissue cultures sent intra-op, pending results -wound did not have the appearance of infection intra-op, will wait for culture results to confirm -patient has questionable UTI and/or PNA, we appreciate IM/ID recs for this -JPx1 in place-continue -follow exam -please call neurosurgery with any questions/concerns Subjective: Patient states she is feeling much better today Objective: Patient more alert and awake to person, month and situation 12/06 BUE, BLE Sensation intact to lt touch BLE JPx1 Dressing CDI Neuro Check Frequency: per routine Urinary Catheter in Place: No - Physician Discussed Patient with : Gt Neurosurgery Physical Exam - Vitals, I&O, Labs I and O 03/15/17 03/16/17 03/17/17 05:59 05:59 05:59 Intake Total 4175 600 Output Total 1685 1275 Balance 2490 -675 Weight 58.513 kg Intake: Oral (ml) 1600 600 IV Intake (ml) 1000 IV Infused (ml) 1575 NS W/ 20 KCl/L 1,000 ml @ 1575 75 mls/hr IV CONT OLI Rx #:[id number] Output: Urine (ml) 1590 1250 Bedside Commode 1590 1250 MYNOR Drain Output (ml) 95 25 Left Back 10 Right Back 85 25 Other: Intake Quantity Yes Yes Sufficient Number of Voids Bedside Commode 1 2 Number of Stools Bedside Commode 0 Microbiology 03/14/17 12:40 Gram Stain - Final Back - Eswab 03/14/17 12:40 Gram Stain - Final Back - Eswab 03/14/17 12:40 Mycobacterial Smear (LA) - Final Back - Tissue 03/14/17 12:40 Gram Stain - Final Back - Tissue Vital Signs Temp Pulse Resp BP Pulse Ox 36.8 C 105 H 22 H 136/76 H 98 03/15/17 19:00 03/15/17 19:00 03/15/17 19:00 03/16/17 08:37 03/15/17 19:00 Laboratory Results 03/16/17 09:25 03/16/17 09:25 ICD10 Worksheet Patient Problems: Problems Problem Status Onset Sepsis Acute
[2017-03-16] MEDS: PHENAZOPYRIDINE HCL 200 MG TAB PO SCH ×3 (11:54→17:14)
[2017-03-16] MEDS: VANCOMYCIN HCL/NORMAL SALINE 250 ML IV SCH (11:54)
--- NOTE | 2017-03-16 11:59 | HOSPPROG ---
Hospitalist Progress Note Assessment/Plan: DIAGNOSES: -acute sepsis, mild without organ failure; Resolved -suspect surgical wound infection after her March 03 surgery for hardware removal, with Staph aureus in wound culture -urinary tract infection is possible with some pyuria but no growth culture so far(which would be a hospital-acquired urinary tract infection acquired at the previous hospital) -I do not have suspicion for pneumonia at this time -partial seizure 03/14 with history of recurrent partial seizures since having an episode of PRES 2 months ago -acute encephalopathy slightly better today, multifactorial in origin -recent spine surgery with removal of hardware and stimulator; some difficulty with wound healing after that I reviewed the progress today with Dr. Nilesh Metcalf and also saw the patient on multidisciplinary rounds She is improved in terms of her sepsis today. At this point with Staph growing in her wound cultures I think that is probably the primary source of infection but will follow urine cultures closely as well and look for any other source. Delirium is improved also but still remains a bit of an issue that may slow down her progress. In terms of the seizure that I saw I went through this in detail with Dr. Cantu and at this point we agree that we do not necessarily need to treated for this syndrome unless she has generalized tonic-clonic seizures or significant difficulty with large number of episodes. In terms of further evaluation it would be good to consider repeating MRI scan and EEG but it would be ideal to do this in the outpatient setting when she is not in the midst of surgery, anesthesia, acute infection with sepsis, etc. If she however has progression to a more significant seizure syndrome here we can always proceed with inpatient evaluation. PLANS: -Continue current antibiotics -Continue wound care for her back -Physical occupational therapies -DVT prophylaxis -follow neurologic status closely but plan at this time is for outpatient evaluation for her seizure disorder which consist of frequent focal seizures or similar spells SUBJECTIVE: notably less pain today, some incisional pain No fever symptoms No respiratory symptoms Eating Vitals reviewed: stable without fever Laboratory Technician, my review: sinus rhythm Exam: alert remains mildly disoriented but better than yesterday, talkative and mostly cheerful skin warm dry color ok resps not labored lungs clear BSs heart regular abd soft nondistended nontender, bowel sounds present limbs warm, no edema iv site ok microbiology: Wound culture from back with Staph aureus Urine cultures and blood cultures so far negative Objective: Vital Signs Temp Pulse Resp BP Pulse Ox 36.8 C 105 H 22 H 136/76 H 98 03/15/17 19:00 03/15/17 19:00 03/15/17 19:00 03/16/17 08:37 03/15/17 19:00 Microbiology 03/14/17 00:50 Urine Culture - Final Unspecified 03/14/17 12:40 Gram Stain - Final Back - Tissue 03/14/17 12:40 Gram Stain - Final Back - Eswab 03/14/17 12:40 Gram Stain - Final Back - Eswab 03/14/17 12:40 Mycobacterial Smear (LA) - Final Back - Tissue Laboratory Results 03/16/17 09:25 03/16/17 09:25 03/15/17 03/16/17 03/17/17 06:59 06:59 06:59 Intake Total 3675 600 Output Total 8565 8075 Balance 1989 - PT 13.8 SEC (12.0-15.0) 03/14/17 00:35 INR 1.07 (0.83-1.16) 03/14/17 00:35 ICD10 Worksheet Patient Problems: Problems Problem Status Onset Sepsis Acute - ICD10 Problem Qualifiers (1) Sepsis Qualifiers: Sepsis type: S
[2017-03-16] MEDS: LEVOTHYROXINE 25 MCG TAB PO SCH (13:08)
[2017-03-16] MEDS: ZOLPIDEM TARTRATE 5 MG TAB PO SCH (23:04)
[2017-03-17] MEDS: HYDROmorphONE/DILAUDID 2 MG TAB PO PRN ×3 (03:46→13:01)
[2017-03-17] MEDS: METHOCARBAMOL 750 MG TAB PO PRN (05:59)
[2017-03-17] MEDS: ACETAMINOPHEN 500 MG TAB PO PRN (05:59)
[2017-03-17] MEDS: LEVOTHYROXINE 25 MCG TAB PO SCH (06:00)
[2017-03-17 07:02] VITALS: BP 142/88; PULSE 99; RESP 16; TEMP 99.1; O2SAT 93
[2017-03-17] MEDS: SENNOSIDES/DOCUSATE SODIUM TAB PO SCH (07:42)
[2017-03-17] MEDS: DULoxetine 60 MG CAP PO SCH (07:42)
[2017-03-17] MEDS: ENOXAPARIN 40 MG/0.4 ML SYR SC SCH (07:42)
[2017-03-17] MEDS: HYDROCHLOROTHIAZIDE 25 MG TAB PO SCH (07:42)
[2017-03-17] MEDS: PHENAZOPYRIDINE HCL 200 MG TAB PO SCH ×2 (07:43→11:53)
[2017-03-17] MEDS: LISINOPRIL 20 MG TAB PO SCH (07:43)
[2017-03-17] MEDS: GABAPENTIN 100 MG CAP PO SCH (07:43)
[2017-03-17] MEDS: PANTOPRAZOLE SODIUM 40 MG TAB PO SCH (07:43)
--- NOTE | 2017-03-17 07:52 | NEUSURGPN ---
Date of Surgery: 03/14/17 Post Op Day: 3 Assessment/Plan: Assessment: 71 yr old s/p I&D lumbar incision POD #2. Pt with reported UTI/ pneumonia Plan: -Pt has a hx of lumbar hardware removal with Dr Del Real on 03/03/17 at [facility] -PT/OT -ok to transfer to [facility] surg -OR cultures came back positive -defer to ID/IM regarding UTI/wound/pneumonia abx choice-patient lives in [facility] and her ID physician is located in [facility] -incision CDI -DC MYNOR -Remove dressing, patient may shower when MYNOR discontinued -Stable from a NS standpoint to dc per PT/OT and ID recommendations for out patient treatment plan -follow exam -please call neurosurgery with any questions/concerns Subjective: Patient feeling well this am Objective: Patient more alert and awake to person, month and situation 12/06 BUE, BLE Sensation intact to lt touch BLE JPx1 Dressing CDI Neuro Check Frequency: per routine Urinary Catheter in Place: No - Physician Discussed Patient with : Gt Patient Seen by : Gt Neurosurgery Physical Exam - Vitals, I&O, Labs I and O 03/16/17 03/17/17 03/18/17 05:59 05:59 05:59 Intake Total 600 2570 Output Total 1275 10 Balance -675 2560 Intake: Oral (ml) 600 2270 IV Infused (ml) 300 NS W/ 20 KCl/L 1,000 ml @ 300 75 mls/hr IV CONT OLI Rx #:[id number] Output: Urine (ml) 1250 Bedside Commode 1250 MYNOR Drain Output (ml) 25 10 Right Back 25 10 Other: Intake Quantity Yes Yes Sufficient Number of Voids Bedside Commode 2 1 Number of Stools Bedside Commode 1 Microbiology 03/14/17 12:40 Gram Stain - Final Back - Tissue 03/14/17 12:40 Gram Stain - Final Back - Eswab 03/14/17 00:50 Urine Culture - Final Unspecified 03/14/17 12:40 Gram Stain - Final Back - Eswab Vital Signs Temp Pulse Resp BP Pulse Ox 37.3 C 99 16 142/88 H 93 03/17/17 06:57 03/17/17 06:57 03/17/17 06:57 03/17/17 06:57 03/17/17 06:57 Laboratory Results 03/16/17 09:25 03/16/17 09:25 ICD10 Worksheet Patient Problems: Problems Problem Status Onset Sepsis Acute
--- NOTE | 2017-03-17 10:33 | PCMIDPN ---
Assessment/Plan: Assessment: Wound infection with MRSA at lumbar surgical site status post hardware removal. Patient covered with vancomycin daily. Stable enough to go home. She has a PICC line in. We will arrange with home IV antibiotic company in [place]. Will order for duration to be 4 weeks from surgery. Plan: 1. Continue IV vancomycin. 2. Arrange for home IV antibiotics for a duration of 4 weeks from surgery. 3. Follow up with Dr. Palafox in Infectious Disease in 7-10 days. 03/17/17 10:31 Subjective: Patient is resting in her hospital bed. She has no new complaint. PICC line was inserted. No complications. No fevers or chills. No rash. Objective: Vancomycin # 4 Vital Signs Temp Pulse Resp BP Pulse Ox 37.3 C 99 16 142/88 H 93 03/17/17 06:57 03/17/17 06:57 03/17/17 06:57 03/17/17 06:57 03/17/17 06:57 Microbiology 03/14/17 12:40 Gram Stain - Final Back - Tissue 03/14/17 12:40 Gram Stain - Final Back - Eswab 03/14/17 00:50 Urine Culture - Final Unspecified 03/14/17 12:40 Gram Stain - Final Back - Eswab Laboratory Results 03/16/17 09:25 03/16/17 09:25 03/16/17 03/17/17 03/18/17 05:59 05:59 05:59 Intake Total 600 2570 Output Total 1275 10 Balance -675 2560 ESR 14 MM/HR (0-30) 03/14/17 00:35 C-Reactive Protein 85.0 mg/L (<10.0) H 03/14/17 00:35 - Physical Exam General Appearance: WD/WN, alert, no apparent distress, non-toxic Respiratory: lungs clear, normal breath sounds, No respiratory distress Cardiac/Chest: regular rate, rhythm, No tachycardia Skin: normal color, warm/dry, No rash Neuro/Psych: alert, normal mood/affect, oriented x 3 ICD10 Worksheet Patient Problems: Problems Problem Status Onset Sepsis Acute
--- NOTE | 2017-03-17 10:35 | PDIAF ---
- Diagnosis Diagnosis: Lumbar wound infection secondary to MRSA Code Status: Full Code - Medication Management Discharge Medications: Medications to Continue on Transfer DULoxetine [Cymbalta 60 MG (*)] 60 mg PO DAILY 09/27/16 [Last Taken 03/12/17] Gabapentin [Neurontin 100 MG (*)] 100 mg PO TID 09/27/16 [Last Taken 03/12/17] Hydrochlorothiazide [HCTZ (*)] 25 mg PO DAILY 09/27/16 [Last Taken 03/12/17] Levothyroxine [Synthroid 25 mcg (*)] 25 mcg PO DAILY06 09/27/16 [Last Taken 04/20] Lisinopril [Zestril 20 mg (*)] 20 mg PO DAILY 09/27/16 [Last Taken 03/12/17] Zolpidem Tartrate [Ambien 5MG (*)] 5 mg PO HS 09/27/16 [Last Taken 03/12/17] tiZANidine HCL [Zanaflex 2MG (*)] 2 mg PO TID PRN 09/27/16 [Last Taken 03/12/17] Acetaminophen [Tylenol 325mg (*)] 325 mg PO DAILY PRN 03/14/17 [Last Taken 03/12] Omeprazole [Prilosec 20 mg] 20 mg PO DAILY 03/14/17 [Last Taken 03/12/17] Usp Antibiotics: Vancomycin 1 g IV Q 24 hours Usp Antibiotic Stop Date: 04/11/17 Discharge Medications: Refer to the Discharge Home Medication list for PRN reason. PICC Care - Routine: Yes - Orders Services needed: Registered Nurse Isolation Type: Contact - Labs/Radiology CBC Date: 03/20/17 (Weekly) CMP Date: 03/20/17 (Weekly) Creatinine Date: 03/24/17 (Weekly) CRP Date: 03/20/17 (Weekly) Vanco Trough Date and Time: 03/20/2017 and twice weekly thereafter. Call or Fax Lab and Imaging Results to: Dr. Roxanna Palafox - Follow Up Care Current Providers and Referrals: NOT,SURE [Other]
[2017-03-17] MEDS: VANCOMYCIN HCL/NORMAL SALINE 250 ML IV SCH (11:53)
--- NOTE | 2017-03-17 13:32 | HOSPPROG ---
Hospitalist Progress Note Assessment/Plan: * MRSA wound infection * Will need IV vancomycin for 2-4 weeks * Infectious Disease will follow outpatient * recent back surgery with hardware removal * sepsis resolved * partial seizure03/14 * No further treatment or evaluation unless another 1 happens * okay from internal medicine perspective to be discharged today Subjective: No new complaints. Wants to go home Objective: Vital Signs Temp Pulse Resp BP Pulse Ox 37.3 C 99 16 142/88 H 93 03/17/17 06:57 03/17/17 06:57 03/17/17 06:57 03/17/17 06:57 03/17/17 06:57 Microbiology 03/14/17 12:40 Gram Stain - Final Back - Eswab 03/14/17 12:40 Gram Stain - Final Back - Eswab 03/14/17 12:40 Mycobacterial Smear (LA) - Final Back - Eswab Mycobacterial Culture - Final 03/14/17 12:40 Gram Stain - Final Back - Tissue 03/14/17 00:50 Urine Culture - Final Unspecified Laboratory Results 03/16/17 09:25 03/16/17 09:25 03/16/17 03/17/17 03/18/17 05:59 05:59 05:59 Intake Total 600 2570 Output Total 1275 10 Balance -675 2560 PT 13.8 SEC (12.0-15.0) 03/14/17 00:35 INR 1.07 (0.83-1.16) 03/14/17 00:35 - Physical Exam Constitutional: no apparent distress, appears nourished, not in pain Eyes: anicteric sclera, EOMI Respiratory: no respiratory distress Gastrointestinal: normoactive bowel sounds, soft, non-tender abdomen, no palpable masses Neurologic: AAOx3 Psychiatric: interacting appropriately, not anxious, not encephalopathic, thought process linear ICD10 Worksheet Patient Problems: Problems Problem Status Onset Sepsis Acute
== END 2017-03-17 14:10 | disposition home health service (06) | DRG 862 ==
LOC: PREOBSVTOIN 22:09 → F3N 23:00 → F2N 03-14 09:47
PROVIDERS: ADMIT Neurological Surgery; ATTEND Neurological Surgery
PROC: 0J9700Z Drainage of Back Subcutaneous Tissue and Fascia with Drainage Device, Open Approach (ICD-10-PCS; principal; 2017-03-14 12:00)
PROC: 02HV33Z Insertion of Infusion Device into Superior Vena Cava, Percutaneous Approach (ICD-10-PCS; 2017-03-16)
DX: T81.4XXA Infection following a procedure, initial encounter (principal); A41.02 Sepsis due to Methicillin resistant Staphylococcus aureus; Z98.1 Arthrodesis status; R41.0 Disorientation, unspecified; G47.00 Insomnia, unspecified; I10 Essential (primary) hypertension; E03.9 Hypothyroidism, unspecified; K21.9 Gastro-esophageal reflux disease without esophagitis; Z87.891 Personal history of nicotine dependence
CPT/HCPCS: 97116-GP; 97162-GP; 97165-GO; 97535-GO; C1751; G8978-GP-CJ; G8979-GP-CI; G8980-GP-CI; G8987-GO-CJ; G8988-GO-CI; J0690; J0696; J1100; J1170; J1650; J2405; J2543; J2704; J3010; J3370

== ENCOUNTER 2017-03-25 10:46 | Inpatient (IN) | payer OTHER ==
--- NOTE | 2017-03-25 11:30 | EDPHY ---
H & P Stated Complaint: SOB, TODAY SENT FROM ID, MRSA TO BACK SURG SITE Time Seen by Provider: 03/25/17 11:21 HPI/ROS: CHIEF COMPLAINT: Shortness of breath HISTORY OF PRESENT ILLNESS: The patient is a 71-year-old female with post-op MRSA infection sent to the ED by Dr. Palafox for tachycardia and shortness of breath. The patient lumbar fusion hardware removal on 03/03/[address] Del Real. She subsequently developed an MRSA infection for which she was hospitalized from March 13 through . She was discharged home with a PICC line on IV vancomycin. She continues to have significant low back pain and intermittent headaches since the surgery. She takes Tylenol with minimal relief and has been off other pain medication for a number of weeks. She has a dry cough with nasal congestion and sinus tenderness which she attributes to allergies. She denies chest pain, fever, urinary complaints, and lower extremity swelling. Patient had creatinine 2.3, BUN 23, and WBC 10.7 yesterday. She was seen by Dr. Roxanna Palafox in clinic today and referred to the emergency department because of tachycardia and exertional dyspnea. REVIEW OF SYSTEMS: A ten point review of systems was performed and is negative with the exception of the items mentioned in the HPI. Extremities: Ongoing bilateral calf pain. Past medical history: 1. MRSA 2. Hypertension 3. Insomnia 4. Hypothyroidism 5. GERD 6. Cataracts and hearing loss Past surgical history: 1. C5-C7 anterior cervical diskectomy and fusion with Dr. Del Real 2012 2. L3-S1 fusion, Dr. Del Real 2012 (following an anterior fusion by Dr. Camejo) 3. Lumbar hardware removal 03/03/17 4. Internal bone stimulator removal 03/03/17 Family history: Noncontributory. Social history: , at bedside. Former smoker. Alcohol use daily. General Appearance: Alert. Vital signs reviewed. HR 98 at rest. Eyes: Pupils equal and round, no conjunctival injection, no discharge. Anicteric. ENT, Mouth: Mucous membranes are moist, no oropharyngeal erythema or edema. Neck: No lymphadenopathy, supple. Respiratory: Lungs are clear to auscultation; no wheezes, rales, or rhonchi. Cardiovascular: Regular rate and rhythm; no murmur, rub, or gallop. Gastrointestinal: Abdomen is soft and nontender, no masses or organomegaly, bowel sounds normal. Skin: Warm and dry, no rashes on exposed skin, normal color. Back: Surgical site is intact, sutures in place, with mild surrounding erythema. No fluctuance or tenderness. Extremities: Bilateral calf tenderness, no edema. Neurological: Alert and oriented. Moving all four extremities easily symmetric strength. Sensation intact to light touch over LEs. Psychiatric: Normal affect. Source: Patient, Family, Old records Exam Limitations: No limitations - Personal History Current Tetanus/Diphtheria Vaccine: Yes Current Tetanus Diphtheria and Acellular Pertussis (TDAP): Yes Tetanus Vaccine Date: 2008 - Medical/Surgical History Hx Asthma: No Hx Chronic Respiratory Disease: No Hx Diabetes: No Hx Cardiac Disease: No Hx Renal Disease: No Hx Cirrhosis: No Hx Alcoholism: No Hx HIV/AIDS: No Hx Splenectomy or Spleen Trauma: No - Social History Smoking Status: Former smoker Constitutional: Initial Vital Signs Temperature (C) 36.9 C 03/25/17 10:49 Heart Rate 98 03/25/17 10:49 Respiratory Rate 18 03/25/17 10:49 Blood Pressure 112/74 03/25/17 10:49 O2 Sat (%) 99 03/25/17 10:49 O2 Delivery Mode Room Air Allergies/Adverse Reactions: No Known Allergies Allergy (Verified 03/25/17 10:52) Home Medications: Medication Instructions Recorded Hydrochlorothiazide [HCTZ (*)] 25 mg PO DAILY 09/27/16 Levothyroxine [Synthroid 25 mcg 25 mcg PO DAILY06 09/27/16 (*)] Lisinopril [Zestril 20 mg (*)] 20 mg PO DAILY 09/27/16 Zolpidem Tartrate [Ambien 5MG (*)] 5 mg PO HS 09/27/16 Acetaminophen [Tylenol 325mg (*)] 975 mg PO BID PRN 03/14/17 Omeprazole [Prilosec 20 mg] 20 mg PO HS 03/14/17 DULoxetine [Cymbalta 60 MG (*)] 60 mg PO HS 03/25/17 Gabapentin [Neurontin 100 MG (*)] 100 mg PO BID@0900,2100 03/25/17 Herbals/Supplements -Info Only 1 ea PO DAILY 03/25/17 Multivitamins [Multivitamin (*)] 1 each PO DAILY 03/25/17 Sennosides [Senokot] 8.6 mg PO DAILY PRN 03/25/17 Medical Decision Making - Diagnostics Imaging Results: Imaging Impressions Chest X-Ray 03/25/17 11:30 Impression: 1. Bronchitis/airways disease. 2. No definite pneumonia. Extremity Venous Study 03/25/17 13:42 Impression: No deep venous thrombosis bilateral legs. Findings and recommendations discussed with Emergency Department physician, MANUEL BLACKWELL at 15:22 hour, 03/25/2017. Final report concurs with initial preliminary interpretation. Imaging: Discussed imaging studies w/ scallop raker Radiologist ED Course/Re-evaluation: Patient was sent by Dr. Palafox with tachycardia and shortness of breath s/p post -op hardware removal with MRSA wound infection. Patient complains of shortness of breath and continued amount of low back pain. 1:30 p.m.: With ambulation heart rate jumps to 115. She is not hypoxic but is subjectively short of breath while walking. Chest x-ray is negative for acute disease. 1:45 p.m.: I reevaluated the patient. HR increases with ambulation. She continues to feel short of breath though she is not hypoxic. I ordered lower extremity Doppler ultrasound. Bilateral lower extremity Doppler ultrasound reported to me by Dr. Juares as negative for DVT. However, as he points out, 30% of patients can have negative lower extremity ultrasounds with PE. I am concerned about PE in this patient who has been much less active than usual following her recent surgery and subsequent hospitalization for infection. There is no evidence of pneumonia on her chest x-ray or on her physical examination. I do not suspect volume loss secondary to bleeding. There may be an element of dehydration. She received 1 L normal saline in the emergency department and continued with tachycardia with exertion. Her creatinine is 2.3 and I do not recommend CT angiogram of her chest. Creatinine was normal previously. She is being admitted to the hospital for consideration of V/Q scanning. Differential Diagnosis: I considered a differential diagnosis that includes but is not limited to PE, pneumonia, heart failure, and volume depletion. - Data Points Laboratory Results: Laboratory Results 03/25/17 11:30 03/25/17 11:30 03/25/17 03/25/17 11:30 11:30 WBC 9.64 10^3/uL H 10^3/uL (3.80-9.50) RBC 2.97 10^6/uL L 10^6/uL (4.18-5.33) Hgb 9.9 g/dL L g/dL (12.6-16.3) Hct 30.6 % L % (38.0-47.0) MCV 103.0 fL H fL (81.5-99.8) MCH 33.3 pg pg (27.9-34.1) MCHC 32.4 g/dL g/dL (32.4-36.7) RDW 13.1 % % (11.5-15.2) Plt Count 473 10^3/uL H 10^3/uL (150-400) MPV 9.5 fL fL (8.7-11.7) Neut % (Auto) 71.7 % % (39.3-74.2) Lymph % (Auto) 14.4 % L % (15.0-45.0) [place] % (Auto) 10.5 % % (4.5-13.0) Eos % (Auto) 1.0 % % (0.6-7.6) Baso % (Auto) 1.3 % % (0.3-1.7) Nucleat RBC Rel Count 0.0 % % (0.0-0.2) Absolute Neuts (auto) 6.90 10^3/uL H 10^3/uL (1.70-6.50) Absolute Lymphs (auto) 1.39 10^3/uL 10^3/uL (1.00-3.00) Absolute Monos (auto) 1.01 10^3/uL H 10^3/uL (0.30-0.80) Absolute Eos (auto) 0.10 10^3/uL 10^3/uL (0.03-0.40) Absolute Basos (auto) 0.13 10^3/uL H 10^3/uL (0.02-0.10) Absolute Nucleated RBC 0.00 10^3/uL 10^3/uL (0-0.01) Immature Gran % 1.1 % % (0.0-1.1) Immature Gran # 0.11 10^3/uL H 10^3/uL (0.00-0.10) Sodium 132 mEq/L L mEq/L (134-144) Potassium 5.0 mEq/L mEq/L (3.5-5.2) Chloride 103 mEq/L mEq/L (97-110) Carbon Dioxide 14 mEq/l L mEq/l (22-31) Anion Gap 15 mEq/L mEq/L (8-16) BUN 24 mg/dL H mg/dL (7-23) Creatinine 2.3 mg/dL H mg/dL (0.6-1.0) Estimated GFR 21 Glucose 96 mg/dL mg/dL (70-100) Calcium 9.8 mg/dL mg/dL (8.5-10.4) Troponin I < 0.012 ng/mL ng/mL (0.000-0.034) Medications Given: Discontinued Medications Sodium Chloride (Ns) 1,000 mls @ 0 mls/hr IV EDNOW ONE; Wide Open PRN Reason: Protocol Stop: 03/25/17 11:32 Last Admin: 03/25/17 11:38 Dose: 1,000 mls Morphine Sulfate (Morphine) 2 mg IVP EDNOW ONE Stop: 03/25/17 14:01 Last Admin: 03/25/17 14:04 Dose: 2 mg Departure - Departure Disposition: [facility] Inpatient Acute Clinical Impression: Tachycardia with heart rate 100-120 beats per minute Condition: Good Report Scribed for: Manuel Blackwell Report Scribed by: Deisi Wan Date of Report: 03/25/17 Time of Report: 11:41 Physician Review and Approval Statement: 03/25/17 11:41 Portions of this note were transcribed by the medical instrument cable fabricator. I, Dr. Manuel Blackwell, personally performed the history, physical exam, and medical decision- making; and confirmed the accuracy of the information in the transcribed note. 03/25/17 11:41
[2017-03-25] MEDS ORDERED: NS 1,000 ML IV ONE (11:31)
[2017-03-25 11:36] LABS: % IMMATURE GRANULYOCYTES 1.1 % (0.0-1.1); ABSOLUTE IMMATURE GRANULOCYTES 0.11 10^3/uL (0.00-0.10); ADD DIFF? NO; ADD MORPH? NO; ADD SCAN? NO; ATYPICAL LYMPHOCYTE FLAG 20 (0-99); FRAGMENT RBC FLAG 0 (0-99); HEMATOCRIT 30.6 % (38.0-47.0); HEMOGLOBIN 9.9 g/dL (12.6-16.3); LEFT SHIFT FLG 10 (0-99); LIPEMIA HEMOLYSIS FLAG 80 (0-99); MEAN CELL HEMOGLOBIN 33.3 pg (27.9-34.1); MEAN CELL HEMOGLOBIN CONCENTR. 32.4 g/dL (32.4-36.7); MEAN PLATELET VOLUME 9.5 fL (8.7-11.7); PLATELET CLUMPS FLAG 0 (0-99); PLATELET COUNT 473 10^3/uL (150-400); RED BLOOD CELL COUNT 2.97 10^6/uL (4.18-5.33); RED CELL DISTRIBUTION WIDTH 13.1 % (11.5-15.2)
--- NOTE | 2017-03-25 11:43 | CPEKG ---
Heart Rate: 83 RR Interval: 723 P-R Interval: 160 QRSD Interval: 66 QT Interval: 368 QTC Interval: 433 P [place]: 43 QRS [place]: -15 T Wave [place]: 38 EKG Severity - OTHERWISE NORMAL ECG - EKG Impression: SINUS RHYTHM EKG Impression: BORDERLINE LEFT AXIS DEVIATION Electronically Signed By: Em Blackwell 25-Mar-2017 15:56:06
[2017-03-25 11:48] LABS: ANION GAP 15 mEq/L (8-16); CALCIUM 9.8 mg/dL (8.5-10.4); CARBON DIOXIDE 14 mEq/l (22-31); CHLORIDE 103 mEq/L (97-110); CREATININE 2.3 mg/dL (0.6-1.0); GLOMERULAR FILTRATION RATE 21; GLUCOSE 96 mg/dL (70-100); SODIUM 132 mEq/L (134-144)
[2017-03-25 12:02] LABS: TROPONIN I < 0.012 ng/mL (0.000-0.034)
[2017-03-25] MEDS ORDERED: ONDANSETRON DISINTEGRATING 4 MG TAB PO PRN (16:16)
[2017-03-25] MEDS ORDERED: ONDANSETRON 4 MG/2 ML VIAL IVP PRN (16:16)
[2017-03-25] MEDS ORDERED: SENNOSIDES 1 TAB PO PRN (16:19)
[2017-03-25 16:42] LABS: ALBUMIN 4.2 g/dL (3.5-5.0); BILIRUBIN,TOTAL 0.9 mg/dL (0.1-1.4); BILIRUBIN-CONJUGATED 0.6 mg/dL (0.0-0.5); BILIRUBIN-UNCONJUGATED 0.3 mg/dL (0.0-1.1); TOTAL PROTEIN 7.2 g/dL (6.3-8.2)
--- NOTE | 2017-03-25 16:51 | PCMIDPN ---
Assessment/Plan: Patient examined by me this AM and send to ER for tachy + SOB with minimal exertion in setting of ARF. # MRSA postop op infection following HWR removal s/p debridement down to dura, but not in epidural space. ON vancomycin for 4 weeks. Holding to await improvement in Cr. Check random vanco in AM. ID to follow while inpatient. --Antibiotic Stop Date: 04/11/17 # ARF - suspect some vancomycin toxicity, but also query, volume depletion, patient denies NSAIDS # Tachy to 130 + SOB with minimal ambulation in clinic. Sats were okay. CXR negative. w/u per medicine 03/25/17 19:09 Objective: Vital Signs Temp Pulse Resp BP Pulse Ox 37.2 C 100 20 123/88 H 98 03/25/17 16:05 03/25/17 15:52 03/25/17 16:05 03/25/17 16:05 03/25/17 16:05 03/24/17 03/25/17 03/26/17 05:59 05:59 05:59 Intake Total 500 Balance 500 ICD10 Worksheet Patient Problems: Problems Problem Status Onset Tachycardia with heart rate 100-120 beats per minute Acute Methicillin resistant Staphylococcus aureus infection Acute ~03/14/17 Sepsis Acute
[2017-03-25] MEDS ORDERED: traMADol 50 MG TAB PO ONE ×2 (18:14→18:25)
[2017-03-25] MEDS: NS 1,000 ML IV SCH (18:27)
--- NOTE | 2017-03-25 18:39 | GHP ---
[f rep st] HISTORY AND PHYSICAL DATE OF ADMISSION: 03/25/2017 CHIEF COMPLAINT: Shortness of breath, ARTHUR. HISTORY OF PRESENT ILLNESS: A 71-year-old female, with history of lumbar stenosis who was recently hospitalized 03/14-03/17 for MRSA wound infection. She had lumbar hardware and bone stimulator removed by Dr. Del Real on March 03, 2017. She was discharged home and returned to the hospital with increased confusion. At that time, there was concern for deep subfascial wound, thus underwent I and D 03/14/2017. Was found to be positive for MRSA and was discharged home on vancomycin. She was seen in Dr. Palafox' clinic today complaining of shortness of breath and increased back pain over the past week. She states that shortness of breath is worse with walking. It can be difficult to take a deep breath. No cough. No fevers, chills, or sweats. No PND. No lower extremity edema. No chest pain. She describes lumbar pain as achy and sharp with movement. Has had intermittent dizziness. She says her memory has been affected since the surgery and is more forgetful. Says she has been eating and drinking okay. Denies NSAID use. No dysuria or increased urinary frequency. REVIEW OF SYSTEMS: I completed a 10-point review of systems, negative except as noted in HPI. PAST MEDICAL HISTORY: Partial seizure last hospitalization, lumbar stenosis. PAST SURGICAL HISTORY: 1. L3 through S1 revision in 2012. 2. C5-7 cervical fusion 2012. 3. Lumbar hardware removal 03/03/2017. 4. Bone stimulator removal 03/03/2017. 5. Deep subfascial wound I and D 03/14/2017. 6. October 2016 SI joint injections. SOCIAL HISTORY: Is . Lives with her in [place]. Has 5 kids. Ex smoker. Drinks 1-2 drinks a day. Uses a cane. FAMILY HISTORY: Heart disease. HOME MEDICATIONS: Herbal supplement, Ambien, senna, multivitamin, omeprazole, lisinopril 20 mg daily, levothyroxine 25 mcg daily, hydrochlorothiazide 25 mg daily, gabapentin 100 mg b.i.d., Cymbalta 60 mg q.h.s., Tylenol 975 b.i.d. p.r.n. PHYSICAL EXAM: VITAL SIGNS: Temperature 37.2, heart rate 90s to one-teens, blood pressure 123/88, respirations 18, 93% on room air. GENERAL: Restless in bed but no acute distress HEENT: PERRLA. EOMI. Mildly dry mucous membranes. CV: Tachy but regular. No murmurs, gallops, or rubs. No JVD, no lower extremity edema. LUNGS: Clear. No crackles or wheezing. ABDOMEN: Soft, nontender, nondistended. Positive bowel sounds. : No suprapubic tenderness. MUSCULOSKELETAL: 5/5 upper and lower extremity strength. Lumbar surgical site sutured but healing well. No drainage or concern for infection. LABS: WBC 9, hemoglobin 9.9, hematocrit 30, MCV 130, platelets 473. Sodium 132 , potassium 5, chloride 103, carbon dioxide 14, creatinine 2.3, baseline 0.8, glucose 96, calcium 9.8, AST 42, ALT 26, alkaline phosphatase 72, conjugated bilirubin 0.6, BNP 342. Urine is pending. Chest x-ray personally reviewed by me. No effusion, edema, or opacity. EKG: Normal sinus rhythm. Heart rate in the 80s. Lower extremity ultrasound negative for DVT. ASSESSMENT AND PLAN: 1. Shortness of breath: new over the past week. Differential includes acute coronary syndrome, infection,pulmonary embolism or volume overload. Dry on exam with normal BNP and troponin. I am concerned about PE with recent surgeries, tachycardia and SOB. Cannot check a CTA given acute kidney injury. Will empirically treat with heparin overnight. I discussed the case with neurosurgeon, who said it is okay to start anticoagulation. Check V/Q in the morning. 2. Tachycardia: Pain versus infection versus pulmonary embolism. Does not appear to be in significant pain now. Afebrile without signs of infection. Troponin and EKG are negative for ischemia. Will hydrate and monitor on telemetry. 3. Acute kidney injury: Baseline 0.8. Suspect dehydrated and was taking HCTZ , Lisinopril, and Vancomycin. Check a UA and urine lytes. Will gently hydrate , avoid nephrotoxic agent, and renally dose medications. 4. Acute encephalopathy: Per patient, she is not feeling right in the head, says she has been more confused. She is afebrile and denies any infectious symptoms. The chest x-ray is normal. Incision site looks good. We will check a UA. I will hold central acting medications and talk to her . 5. Hypertension. Hold lisinopril and diuretic with acute kidney injury. 6. Neuropathy. Hold gabapentin given mild encephalopathy. 7. MRSA wound infection: followed by [facility]. Hold vanc with ARTHUR, check level in morning 8. Diet: Regular. 9. Deep venous thrombosis prophylaxis: On heparin drip. DISPOSITION: Patient warrants inpatient admission given acute kidney injury, tachycardia, concern for pulmonary embolism, requiring IV fluids and heparin drip. /[id number]/MODL MTDD
[2017-03-25 18:59] LABS: TROPONIN I < 0.012 ng/mL (0.000-0.034)
[2017-03-25 19:00] LABS: COLOR YELLOW; LEUKOCYTE ESTERASE,URINE NEGATIVE (NEGATIVE); NITRITE,URINE NEGATIVE (NEGATIVE)
[2017-03-25] MEDS ORDERED: HEPARIN 10,000 UNIT/10 ML MDV IVP ONE (20:02)
[2017-03-25] MEDS ORDERED: HEPARIN/DEXTROSE 500 ML IV SCH ×2 (20:15→20:31)
[2017-03-25] MEDS ORDERED: HEPARIN 10,000 UNIT/10 ML MDV IVP PRN (20:31)
[2017-03-25] MEDS ORDERED: ZOLPIDEM TARTRATE 5 MG TAB PO SCH (21:00)
[2017-03-25] MEDS ORDERED: oxyCODONE IR 5 MG TAB PO ONE (21:08)
[2017-03-25 21:42] LABS: % IMMATURE GRANULYOCYTES 1.2 % (0.0-1.1); ADD DIFF? NO; ADD MORPH? NO; ADD SCAN? NO; ATYPICAL LYMPHOCYTE FLAG 20 (0-99); FRAGMENT RBC FLAG 0 (0-99); HEMATOCRIT 31.9 % (38.0-47.0); HEMOGLOBIN 10.4 g/dL (12.6-16.3); LEFT SHIFT FLG 10 (0-99); LIPEMIA HEMOLYSIS FLAG 80 (0-99); MEAN CELL HEMOGLOBIN 33.4 pg (27.9-34.1); MEAN CELL HEMOGLOBIN CONCENTR. 32.6 g/dL (32.4-36.7); MEAN CELL VOLUME 102.6 fL (81.5-99.8); MEAN PLATELET VOLUME 9.6 fL (8.7-11.7); PLATELET CLUMPS FLAG 20 (0-99); PLATELET COUNT 498 10^3/uL (150-400); RED BLOOD CELL COUNT 3.11 10^6/uL (4.18-5.33); RED CELL DISTRIBUTION WIDTH 13.2 % (11.5-15.2)
[2017-03-25 21:59] LABS: APTT 22.6 SEC (23.0-38.0); INR 1.03 (0.83-1.16); PROTIME(PATIENT) 13.4 SEC (12.0-15.0)
[2017-03-25] MEDS: GABAPENTIN 100 MG CAP PO SCH (22:09)
[2017-03-25] MEDS: PANTOPRAZOLE SODIUM 40 MG TAB PO SCH (22:09)
[2017-03-25] MEDS: DULoxetine 60 MG CAP PO SCH (22:11)
[2017-03-26] MEDS: LEVOTHYROXINE 25 MCG TAB PO SCH (05:40)
[2017-03-26 05:50] LABS: HEMATOCRIT 28.5 % (38.0-47.0); HEMOGLOBIN 9.2 g/dL (12.6-16.3); LIPEMIA HEMOLYSIS FLAG 80 (0-99); MEAN CELL HEMOGLOBIN 32.7 pg (27.9-34.1); MEAN CELL HEMOGLOBIN CONCENTR. 32.3 g/dL (32.4-36.7); MEAN CELL VOLUME 101.4 fL (81.5-99.8); PLATELET COUNT 458 10^3/uL (150-400); RED BLOOD CELL COUNT 2.81 10^6/uL (4.18-5.33); RED CELL DISTRIBUTION WIDTH 12.8 % (11.5-15.2)
[2017-03-26] MEDS: ACETAMINOPHEN 325 MG TAB PO PRN ×3 (08:14→18:59)
[2017-03-26] MEDS: MULTIVITAMINS 1 EACH TAB PO SCH (08:15)
[2017-03-26] MEDS: GABAPENTIN 100 MG CAP PO SCH ×2 (08:15→20:17)
[2017-03-26] MEDS: NS 1,000 ML IV SCH ×2 (08:27→18:58)
[2017-03-26] MEDS ORDERED: ENOXAPARIN 30 MG/0.3 ML SYR SC SCH (09:00)
[2017-03-26] MEDS ORDERED: Herbals/Supplements -Info Only PO SCH (09:00)
[2017-03-26 13:01] LABS: ANION GAP 11 mEq/L (8-16); CALCIUM 8.9 mg/dL (8.5-10.4); CARBON DIOXIDE 17 mEq/l (22-31); CHLORIDE 106 mEq/L (97-110); CREATININE 1.1 mg/dL (0.6-1.0); GLOMERULAR FILTRATION RATE 49; GLUCOSE 86 mg/dL (70-100); POTASSIUM 4.8 mEq/L (3.5-5.2); SODIUM 134 mEq/L (134-144)
[2017-03-26] MEDS: oxyCODONE IR 5 MG TAB PO PRN ×2 (13:02→16:44)
--- NOTE | 2017-03-26 15:07 | HOSPPROG ---
Hospitalist Progress Note Assessment/Plan: * acute renal failure * Possibly due to vancomycin along with dehydration in combination of diuretic and KATY inhibitor * Holding all these medications * Improving * Continue IV fluids * history of MRSA hardware infection * Had been on vancomycin did until creatinine worsened * Id following and will decide when to restart what dose * worsening cognitive status * Scheduled for MRI and EEG at the end of the month * tachycardia * Improving * V/Q scan negative * Continue IV fluids Subjective: Feeling a lot better overall. Wants to go home Objective: Vital Signs Temp Pulse Resp BP Pulse Ox 37.1 C 109 H 20 122/75 H 99 03/26/17 10:43 03/26/17 10:43 03/26/17 10:43 03/26/17 10:43 03/26/17 10:43 Laboratory Results 03/26/17 05:30 03/26/17 12:15 03/25/17 03/26/17 03/27/17 05:59 05:59 05:59 Intake Total 750 Output Total 175 Balance 575 PT 13.4 SEC (12.0-15.0) 03/25/17 21:24 INR 1.03 (0.83-1.16) 03/25/17 21:24 - Physical Exam Constitutional: no apparent distress, appears nourished, not in pain Eyes: anicteric sclera, EOMI Ears, Nose, Mouth, Throat: moist mucous membranes, hearing normal Cardiovascular: regular rate and rhythym, no murmur, rub, or gallop Respiratory: no respiratory distress, no rales or rhonchi Gastrointestinal: normoactive bowel sounds, soft, non-tender abdomen, no palpable masses Skin: warm, other (Back incision looks clean) ICD10 Worksheet Patient Problems: Problems Problem Status Onset Tachycardia with heart rate 100-120 beats per minute Acute Methicillin resistant Staphylococcus aureus infection Acute ~03/14/17 Sepsis Acute
--- NOTE | 2017-03-26 16:38 | PCMIDPN ---
Assessment/Plan: # MRSA postop op infection following HWR removal s/p debridement down to dura, but not in epidural space. --Resume vancomycin 1gm IV daily, tomorrow Antibiotic Stop Date: 04/11/17 # ARF - improved; suspect some vancomycin toxicity, volume depletion, KATY/ diuretic # Tachy - intermittent still, V/q SCAN Negative, likely related to volume depletion -- gradually increase ambulation to assess if stable for discharge Vanco R = 11 Subjective: patient c/o GRIMALDO, unsure if SOB improved, has not moved around much because of GRIMALDO Objective: Vital Signs Temp Pulse Resp BP Pulse Ox 37.4 C 103 H 16 133/63 H 99 03/26/17 15:42 03/26/17 15:42 03/26/17 15:42 03/26/17 15:42 03/26/17 15:42 Laboratory Results 03/26/17 05:30 03/26/17 12:15 03/25/17 03/26/17 03/27/17 05:59 05:59 05:59 Intake Total 750 Output Total 175 Balance 575 - Physical Exam General Appearance: alert, no apparent distress Respiratory: lungs clear, No accessory muscle use Cardiac/Chest: regular rate, rhythm ((not tachy at time of my exam)) Extremities: No pedal edema Abdomen: non-tender, soft Back: other (incision healed) Neuro/Psych: alert, normal mood/affect, oriented x 3 - Line/s RUE PICC Lines: No drainage, No erythema ICD10 Worksheet Patient Problems: Problems Problem Status Onset Tachycardia with heart rate 100-120 beats per minute Acute Methicillin resistant Staphylococcus aureus infection Acute ~03/14/17 Sepsis Acute
[2017-03-26] MEDS: PANTOPRAZOLE SODIUM 40 MG TAB PO SCH (20:17)
[2017-03-26] MEDS: DULoxetine 60 MG CAP PO SCH (20:17)
[2017-03-27] MEDS: oxyCODONE IR 5 MG TAB PO PRN ×2 (00:19→07:50)
[2017-03-27 03:45] VITALS: RESP 16
[2017-03-27] MEDS: LEVOTHYROXINE 25 MCG TAB PO SCH (05:20)
[2017-03-27] MEDS: MULTIVITAMINS 1 EACH TAB PO SCH (07:34)
[2017-03-27] MEDS: GABAPENTIN 100 MG CAP PO SCH (07:34)
[2017-03-27] MEDS: ACETAMINOPHEN 325 MG TAB PO PRN ×2 (07:50→11:54)
[2017-03-27] MEDS ORDERED: VANCOMYCIN HCL/NORMAL SALINE 250 ML IV SCH (08:00)
[2017-03-27 08:05] VITALS: BP 154/89; TEMP 98.7
--- NOTE | 2017-03-27 09:34 | PDIAF ---
- Diagnosis Diagnosis: MRSA post op infection lumbar spine Code Status: Full Code - Medication Management Discharge Medications: Medications to Continue on Transfer Hydrochlorothiazide [HCTZ (*)] 25 mg PO DAILY 09/27/16 [Last Taken 03/12/17] Levothyroxine [Synthroid 25 mcg (*)] 25 mcg PO DAILY06 09/27/16 [Last Taken 04/20] Lisinopril [Zestril 20 mg (*)] 20 mg PO DAILY 09/27/16 [Last Taken 03/12/17] Zolpidem Tartrate [Ambien 5MG (*)] 5 mg PO HS 09/27/16 [Last Taken 03/12/17] Acetaminophen [Tylenol 325mg (*)] 975 mg PO BID PRN 03/14/17 [Last Taken ] Omeprazole [Prilosec 20 mg] 20 mg PO HS 03/14/17 [Last Taken 03/12/17] DULoxetine [Cymbalta 60 MG (*)] 60 mg PO HS 03/25/17 [Last Taken Unknown] Gabapentin [Neurontin 100 MG (*)] 100 mg PO BID@0900,2100 03/25/17 [Last Taken Unknown] Herbals/Supplements -Info Only 1 ea PO DAILY 03/25/17 [Last Taken Unknown] Multivitamins [Multivitamin (*)] 1 each PO DAILY 03/25/17 [Last Taken Unknown] Sennosides [Senokot] 8.6 mg PO DAILY PRN 03/25/17 [Last Taken Unknown] Drafter (Cad) Electronic Antibiotics: vancomycin 1gm IV daily Drafter (Cad) Electronic Antibiotic Stop Date: 04/11/17 Discharge Medications: Refer to the Discharge Home Medication list for PRN reason. PICC Care - Routine: Yes - Labs/Radiology BMP Date: 04/03/17 (every Friday) CBC Date: 03/31/17 (every Friday) CMP Date: 03/31/17 (every Friday) Vanco Trough Date and Time: 03/31 and 04/03, every Friday and Call or Fax Lab and Imaging Results to: Dane Palafox [phone] - Follow Up Care Current Providers and Referrals: SHIVANI KNIGHT [Other] - As per Instructions Dane Palafox MD [Medical Doctor] - 04/03/17 1:00 pm
--- NOTE | 2017-03-27 09:37 | PCMIDPN ---
Assessment/Plan: # MRSA postop op infection following HWR removal s/p debridement down to dura, but not in epidural space. --vancomycin 1gm IV daily started back today Antibiotic Stop Date: 04/11/17 # ARF -creatinine is normal today. Acute renal failure was multiple factors including some vancomycin toxicity, volume depletion, KATY/diuretic # Tachy - felt secondary to volume depletion, patient walked today with heart rate only at 100 Subjective: Called [id number] who is an FP Doc, who states that patient has been continuing to drink alcohol, which concerns her Patient feels stronger and wants to go home Objective: Vital Signs Temp Pulse Resp BP Pulse Ox 37.1 C 87 16 154/89 H 96 03/27/17 08:00 03/27/17 08:00 03/27/17 08:00 03/27/17 08:00 03/27/17 08:00 Laboratory Results 03/26/17 05:30 03/26/17 12:15 03/26/17 03/27/17 03/28/17 05:59 05:59 05:59 Intake Total 750 3306 Output Total 175 1300 Balance 575 2005 Laboratory Tests 03/27/17 10:15 Creatinine 0.8 - Physical Exam General Appearance: alert, no apparent distress EENT: pale conjunctiva Respiratory: No accessory muscle use Skin: No rash Neuro/Psych: alert, normal mood/affect - Line/s RUE PICC Lines: No drainage, No erythema - Time Spent With Patient Time Spent with Patient: greater than 25 minutes Time Spent with Patient: Greater than 25 minutes spent on this patients care, greater than 50% of time spent counseling, educating, and coordinating care regarding the above mentioned plan. ICD10 Worksheet Patient Problems: Problems Problem Status Onset Methicillin resistant Staphylococcus aureus infection Acute ~03/14/17 Sepsis Acute Tachycardia with heart rate 100-120 beats per minute Acute
[2017-03-27 10:29] LABS: % IMMATURE GRANULYOCYTES 0.3 % (0.0-1.1); ABSOLUTE IMMATURE GRANULOCYTES 0.02 10^3/uL (0.00-0.10); ADD DIFF? NO; ADD MORPH? NO; ADD SCAN? NO; ATYPICAL LYMPHOCYTE FLAG 10 (0-99); FRAGMENT RBC FLAG 0 (0-99); HEMATOCRIT 25.8 % (38.0-47.0); HEMOGLOBIN 8.8 g/dL (12.6-16.3); LEFT SHIFT FLG 0 (0-99); LIPEMIA HEMOLYSIS FLAG 90 (0-99); MEAN CELL HEMOGLOBIN 34.5 pg (27.9-34.1); MEAN CELL HEMOGLOBIN CONCENTR. 34.1 g/dL (32.4-36.7); MEAN CELL VOLUME 101.2 fL (81.5-99.8); MEAN PLATELET VOLUME 9.6 fL (8.7-11.7); PLATELET CLUMPS FLAG 0 (0-99); PLATELET COUNT 429 10^3/uL (150-400); RED BLOOD CELL COUNT 2.55 10^6/uL (4.18-5.33)
[2017-03-27 10:51] LABS: ANION GAP 9 mEq/L (8-16); CALCIUM 8.9 mg/dL (8.5-10.4); CARBON DIOXIDE 18 mEq/l (22-31); CHLORIDE 106 mEq/L (97-110); CREATININE 0.8 mg/dL (0.6-1.0); GLOMERULAR FILTRATION RATE > 60; GLUCOSE 83 mg/dL (70-100); POTASSIUM 4.5 mEq/L (3.5-5.2); SODIUM 133 mEq/L (134-144)
[2017-03-27 11:42] VITALS: PULSE 100; O2SAT 95
--- NOTE | 2017-03-27 12:44 | GDS ---
[f rep st] DISCHARGE SUMMARY DISCHARGE DIAGNOSES: 1. Acute renal failure. 2. Volume depletion. 3. Tachycardia secondary to above. 4. Recent methicillin-resistant Staphylococcus aureus wound infection after lumbar hardware and bon e stimulator removed. 5. Cognitive dysfunction, fairly recent. 6. History of PRES (posterior reversible encephalopathy syndrome). 7. Hypertension. HISTORY: A 71-year-old female who presented with shortness of breath and tachycardia. HOSPITAL COURSE: The patient was admitted. Her creatinine was up. She underwent V/Q scanning, i ch was negative for pulmonary embolism. She was given IV fluids, and her tachycardia, shortness of breath and acute renal failure all resolved. She is probably at baseline right now. We will be dis charging her home off her hydrochlorothiazide, but to continue her lisinopril. DISPOSITION: Home. DISCHARGE MEDICATIONS: She is to resume her home medicines, including IV vancomycin, but will disco ntinue hydrochlorothiazide. Greater than 30 minutes were spent on discharge. /[id number]/MODL
== END 2017-03-27 12:18 | disposition home health service (06) | DRG 684 ==
LOC: F3E 16:02
PROVIDERS: ADMIT Internal Medicine; ATTEND Internal Medicine
DX: N17.9 Acute kidney failure, unspecified (principal); T36.8X5A Adverse effect of other systemic antibiotics, initial encounter; T50.2X5A Adverse effect of carbonic-anhydrase inhibitors, benzothiadiazides and other diuretics, initial encounter; E86.9 Volume depletion, unspecified; T81.4XXD Infection following a procedure, subsequent encounter; B95.62 Methicillin resistant Staphylococcus aureus infection as the cause of diseases classified elsewhere; R41.89 Other symptoms and signs involving cognitive functions and awareness; I10 Essential (primary) hypertension; G47.00 Insomnia, unspecified; E03.9 Hypothyroidism, unspecified; K21.9 Gastro-esophageal reflux disease without esophagitis; Z87.891 Personal history of nicotine dependence; Z98.1 Arthrodesis status
CPT/HCPCS: 85520-90; 96374; 97161-GP; A9540; G8978-GP-CI; G8979-GP-CI; G8980-GP-CI; J1644; J3370

== ENCOUNTER → 2017-04-03 | Outpatient (CLI) | payer OTHER | LOC: FIMAGING 15:14 | PROVIDERS: ATTEND Psychiatry & Neurology Neurology | DX: G40.109 Localization-related (focal) (partial) symptomatic epilepsy and epileptic syndromes with simple partial seizures, not intractable, without status epilepticus (principal) ==

== ENCOUNTER → 2017-04-03 | Outpatient (CLI) | payer OTHER ==
--- NOTE | 2017-04-07 10:14 | CPEEG ---
[f rep st] ELECTROENCEPHALOGRAM FOUR-HOUR VIDEO. DATE OF STUDY: 04/03/2017 DATE OF INTERPRETATION: 04/07/17. INTERPRETATION: This 4-hour video EEG recording is abnormal due to the presence of potentially epileptogenic abnormalities over the left temporal head region. These findings would be consistent with a focal seizure disorder. The patient did not have any clinical events or electrographic seizure discharges during the video EEG monitoring session. REPORT: This 4-hour video EEG contains 9 Hz alpha activity at the posterior head regions. There was no abnormal activation at rest, during photic stimulation or hyperventilation. The patient became drowsy and fell into a sustained sleep during the study. During drowsiness and sleep, there was activation of left temporal sharp waves (maximum amplitudes at electrode T3). The patient did not have any clinical events or electrographic discharges during the video EEG monitoring session. /[id number]/MODL MTDD
== END ==
LOC: FCPNEURO 08:22
PROVIDERS: ATTEND Psychiatry & Neurology Neurology
DX: G40.109 Localization-related (focal) (partial) symptomatic epilepsy and epileptic syndromes with simple partial seizures, not intractable, without status epilepticus (principal); R94.01 Abnormal electroencephalogram [EEG]